=== PATIENT | female | born 1970 | race Caucasian/White ===

== ENCOUNTER 2020-08-04 16:52 | Emergency (ER) | payer BC ==
[~2020-08-04] VITALS: Ht 154 cm; Wt 97.5 kg
[2020-08-04] MEDS ORDERED: PRD20T PO (17:10)
--- NOTE | 2020-08-04 17:10 | ED Lower Extremity ---
General Chief Complaint: Lower Extremity Stated Complaint: R FOOT/HEEL PAIN Source: patient Exam Limitations: no limitations History of Present Illness Date Seen by Provider: Aug 04, 2020 Time Seen by Provider: 17:07 Initial Comments Right ankle pain x1 week. Saw Dr miriam Crews 1 week ago at onset of this and ankle was taped after a diagnosis of bone spur, but that made it worse. Was given nothing for pain. Onset: just prior to arrival Severity: moderate Pain/Injury Location: right ankle Method of Injury: unknown Allergies and Home Medications Allergies Coded Allergies: cefazolin (Verified Allergy, Mild, 08/04/20) tramadol (Verified Allergy, Unknown, 08/04/20) Home Medications Prednisone 20 Mg Tab, 40 MG PO DAILY Prescribed by: AMADOU CHOWDARY on 08/04/20 1710 Patient Home Medication List Home Medication List Reviewed: Yes Review of Systems Constitutional: see HPI; No chills, No fever EENTM: see HPI Respiratory: no symptoms reported Cardiovascular: no symptoms reported Genitourinary: no symptoms reported Musculoskeletal: see HPI Skin: no symptoms reported Psychiatric/Neurological: No Symptoms Reported Physical Exam Vital Signs Vital Signs - First Documented 08/04/20 17:00 Temp 36.5 Pulse 86 Resp 18 B/P (MAP) 121/79 (93) Pulse Ox 96 Capillary Refill : Height, Weight, BMI Height: '" Weight: lbs. oz. kg; BMI Method: General Appearance: WD/WN, no apparent distress HEENT: PERRL/EOMI, normal ENT inspection Neck: non-tender, full range of motion Respiratory: no respiratory distress, no accessory muscle use Hips: bilateral hip non-tender, bilateral hip normal inspection, bilateral hip normal range of motion Legs: bilateral leg non-tender, bilateral leg normal inspection, bilateral leg normal range of motion Knees: bilateral knee non-tender, bilateral knee normal inspection, bilateral knee normal range of motion Ankles: right ankle pain, right ankle soft tissue tenderness, right ankle other (Pain or swelling with normal skin color posterior to the lateral malleolus on the right. No erythema or ecchymosis.) Neurologic/Psychiatric: alert, normal mood/affect, oriented x 3 Skin: normal color, warm/dry Progress/Results/Core Measures Results/Orders My Orders Orders - AMADOU CHOWDARY APRN Foot, Right, 3 View (08/04/20 17:01) Ketorolac Injection (Toradol Injection) (08/04/20 17:15) Prednisone Tablet (Deltasone Tablet) (08/04/20 17:15) Medications Given in ED Current Medications Medications Dose Ordered Sig/Jaime Route Start Time Stop Time Status Last Admin Dose Admin Ketorolac Tromethamine 60 mg ONCE ONCE IM 08/04/20 17:15 08/04/20 17:16 DC 08/04/20 17:20 60 MG Prednisone 40 mg ONCE ONCE PO 08/04/20 17:15 08/04/20 17:16 DC 08/04/20 17:20 40 MG Vital Signs/I&O 08/04/20 17:00 Temp 36.5 Pulse 86 Resp 18 B/P (MAP) 121/79 (93) Pulse Ox 96 Departure Communication (Admissions) Enrique hayes reports a recent prescription for hydrocodone that she should not yet be out of---7 day rx for hydrocodone/apap 7.5/325 filled on 07/31 #25 tabs. Impression Primary Impression: Calcaneal bursitis, right Additional Impression: Calcaneal spur Disposition: HOME, SELF-CARE Condition: Stable Departure-Patient Inst. Decision time for Depature: 17:09 Referrals: ELZBIETA FINLEY DPM [facility] (PCP/Family) Primary Care Physician BOUBACAR CARROLL MD, CORIN Q DPM Patient Instructions: NO INSTRUCTIONS GIVEN Add. Discharge Instructions: 1. Steroids as directed. Crutches as needed. ice Pack to the area. return to ER for any worsening symptoms or other concerns. Follow-up with one of the orthopedist listed. All discharge instructions reviewed with patient and/or family. Voiced understanding. Scripts Prednisone (Prednisone) 20 Mg Tab 40 MG PO DAILY, #6 TAB Prov: AMADOU CHOWDARY APRN 08/04/20 AMADOU CHOWDARY PRODUCTION SUPPORT ANALYST Aug 04, 2020 17:10
[2020-08-04] MEDS ORDERED: KETOROLAC 60 MG/2 ML VIAL IM ONE (17:15)
[2020-08-04] MEDS ORDERED: predniSONE 20 MG TAB PO ONE (17:15)
[2020-08-04] MEDS ORDERED: BUDE10.2 (17:17)
[2020-08-04] MEDS ORDERED: HYDR-3817 (17:17)
[2020-08-04] MEDS ORDERED: ATEN50TA (17:17)
[2020-08-04] MEDS ORDERED: MELO15TA39 (17:17)
[2020-08-04] MEDS ORDERED: ZOLP10TA PO (17:18)
--- NOTE | 2020-08-04 17:41 | Diagnostic Imaging Report ---
INDICATION: Pain behind the lateral malleolus. TIME OF EXAM: 05:39 p.m. TECHNIQUE: Three views of the right foot were obtained. FINDINGS: Metatarsals appear intact. Phalanges are intact. Midfoot and hindfoot are unremarkable apart from a large plantar calcaneal spur. No fractures are seen. IMPRESSION: No acute bony abnormality is detected. Dictated by: Dictated on workstation # [id number]
[2020-08-04 17:52] VITALS: BP 110/86
== END 2020-08-04 17:52 | disposition home or self-care (01) ==
LOC: ER 16:56
DX: M77.51 Other enthesopathy of right foot and ankle (principal); M77.31 Calcaneal spur, right foot; Z88.5 Allergy status to narcotic agent; Z88.1 Allergy status to other antibiotic agents; Z79.52 Long term (current) use of systemic steroids
CPT/HCPCS: 73630

== ENCOUNTER 2022-09-05 11:35 | Emergency (ER) | payer MEDICAID ==
[~2022-09-05] VITALS: Ht 155 cm; Wt 102.2 kg
[~2022-09-05 11:35] MED LIST: ATEN50TA; BUDE10.2; HYDR-3817; MELO15TA39; PRD20T PO; ZOLP10TA PO
--- NOTE | 2022-09-05 13:30 | ED General ---
General Chief Complaint: General Problems/Pain Stated Complaint: LT ANKLE RETAINING FLUID | RT FINGERS NUMB Nursing Triage Note: PT STATES BILAT FOOT SWELLING, RIGHT INDEX AND MIDDLE FINGER NUMBNESS, AND LOWER BACK PAIN FROM WALKING FOR 1 HOUR IN THE RAIN. STATES SHE FELL 2 WEEKS AGO AND HAS A BROKEN LEFT FOOT THAT SHE REMOVED THE BOOT ON TO WALK INTO THE ED AND MULTIPLE BRUISES. Source of Information: Patient Exam Limitations: No Limitations History of Present Illness Date Seen by Provider: September 05, 2022 Time Seen by Provider: 13:27 Initial Comments Patient is a 51-year-old female presents ED with concern for bilateral foot swelling. Foot swelling over the past 2 days. She has Lasix 20 mg she takes for retained fluid which she has been taking with improvement of the swelling. She states she fractured her left lateral ankle 1 week ago currently wearing a boot. Denies of any leg pain, bruising or redness. She states she has urinated several times today. She denies feeling short of breath but does report a mild cough. 1 week ago she was walking in the rain in [place]. She is concerned she may have pneumonia. History of every day smoker. Denies history of COPD, CHF. She states she has stage II kidney disease. Denies diabetes. She denies any current chest pain, shortness of breath, abdominal pain vomiting, diarrhea, fever or chills. She is requesting a chest x-ray. She is refusing any lab work. She states she has a pain in her upper back after walking in the rain. Denies of any fall or trauma. Allergies and Home Medications Allergies Coded Allergies: cefazolin (Verified Allergy, Mild, 08/04/20) tramadol (Verified Allergy, Unknown, 08/04/20) Patient Home Medication List Home Medication List Reviewed: Yes Atenolol (Atenolol) 50 Mg Tablet, (Reported) Entered as Reported by: MANOLO PAGAN on 08/04/201716 Budesonide/Formoterol Fumarate (Symbicort 160-4.5 Mcg Inhaler) 10.2 Gm Hfa.aer.ad, (Reported) Entered as Reported by: MANOLO PAGAN on 08/04/201716 Hydrocodone/Acetaminophen (Hydrocodone-Acetamin 7.5-325) 1 Each Tablet, (Reported) Entered as Reported by: MANOLO PAGAN on 08/04/201716 Meloxicam (Meloxicam) 15 Mg Tablet, (Reported) Entered as Reported by: MANOLO PAGAN on 08/04/201716 Prednisone (Prednisone) 20 Mg Tab, 40 MG PO DAILY Prescribed by: AMADOU CHOWDARY on 08/04/201709 Zolpidem Tartrate (Ambien) 10 Mg Tablet, 10 MG PO, (Reported) Entered as Reported by: MANOLO PAGAN on 08/04/201717 Review of Systems Review of Systems Constitutional: No chills, No diaphoresis, No fever, No malaise EENTM: No blurred vision, No double vision Respiratory: cough; No dyspnea on exertion Cardiovascular: No chest pain Gastrointestinal: No abdominal pain, No diarrhea, No nausea, No vomiting Genitourinary: No decreased output, No discharge, No dysuria, No frequency Musculoskeletal: back pain, joint pain Skin: No change in color, No change in hair/nails Psychiatric/Neurological: Denies Anxiety, Denies Depressed All Other Systems Reviewed Negative Unless Noted: Yes Past Tgfrmlv-Asqnbp-Fdssaz Hx Patient Social History Tobacco Use?: Yes Tobacco type used: Cigarettes Smoking Status: Current Everyday Smoker Smokeless Tobacco Frequency: Current Everyday User Substance use?: No Alcohol Use?: No Seasonal Allergies Seasonal Allergies: No Past Medical History Surgery/Hospitalization HX: HTN, HIGH CHOLESTEROL, DEPRESSION, ANXIETY, INSOMNIA APPY, FOOT SURGERY 2001, C SECTION X2 Appendectomy, Section, Orthopedic Respiratory: No Cardiac: Yes High Cholesterol, Hypertension Neurological: No Genitourinary: No Gastrointestinal: No Musculoskeletal: No Endocrine: No HEENT: No Cancer: No Psychosocial: Yes Depression Integumentary: No Physical Exam Vital Signs Vital Signs - First Documented 09/05/22 11:46 Temp 37.0 Pulse 81 Resp 18 B/P (MAP) 114/67 (83) Pulse Ox 93 Capillary Refill : Less Than 3 Seconds Height, Weight, BMI Height: '" Weight: lbs. oz. kg; 42.00 BMI Method: General Appearance: No Apparent Distress, WD/WN Eyes: Bilateral Eye Normal Inspection, Bilateral Eye PERRL, Bilateral Eye Abnormal EOM HEENT: PERRL/EOMI, TMs Normal, Normal ENT Inspection, Pharynx Normal Neck: Full Range of Motion, Normal Inspection, Non Tender, Supple Respiratory: Chest Non Tender, Lungs Clear, Normal Breath Sounds, No Accessory Muscle Use, No Respiratory Distress Cardiovascular: Regular Rate, Rhythm, No Edema, No Gallop, No JVD, No Murmur Gastrointestinal: Normal Bowel Sounds, No Organomegaly, No Pulsatile Mass, Non Tender Back: Vertebral Tenderness (Thoracic paraspinal muscle tenderness. No lumbar thoracic midline tenderness) Extremity: Normal Capillary Refill, Normal Range of Motion, Other (Mild swelling bilateral dorsum foot, left lateral ankle. No tenderness to palpate. No swelling or bruising redness. Cap refill less than 2. Dorsalis pedis +2.) Neurologic/Psychiatric: Alert, Oriented x3, No Motor/Sensory Deficits, Normal Mood/Affect, bioengineer II-XII Norm as Tested Skin: Normal Color, Warm/Dry Progress/Results/Core Measures Suspected Sepsis SIRS Temperature: Pulse: 81 Respiratory Rate: 18 Blood Pressure 114 /67 Mean: 83 Results/Orders My Orders Orders - BREE CORMIER PA Chest 1 View, Ap/Pa Only (09/05/22 13:26) Vital Signs/I&O 09/05/22 09/05/22 11:46 13:57 Temp 37.0 Pulse 81 79 Resp 18 18 B/P (MAP) 114/67 (83) 125/65 Pulse Ox 93 93 Capillary Refill : Less Than 3 Seconds Blood Pressure Mean: 83 Departure Communication (PCP) Reviewed previous ER visits, H&P, lab testing. Differential diagnosis of lower leg edema, kidney disease, immobilization. patient recent fractured left ankle. Has been wearing a boot. She is concerned bilateral foot swelling. Does take Lasix periodically. She reports stage II kidney disease. Denies chest pain or shortness of breath. She states she developed a cough 1 week ago after walking in the rain. She has pain to her mid lateral back. Denies any fall or trauma. Chest x-ray was performed rule out pneumonia which was negative. She is not hypoxic, tachycardic or febrile. Bilateral feet with very minimal swelling. No redness, swelling or pain on palpation. Able to ambulate. Refused lab work check her kidney function. She states she had lab work drawn 6 weeks ago. Discussed potential change in lab work in 6 weeks. She does have Lasix that she takes intermittently for leg swelling. Denies history of CHF. Swelling may be secondary to her boot or immobilization. Patient states she is urinating. no evidence suggesting DVT without calf tenderness, calf redness or bruising. No evidence. She is not hypoxic or tachycardic. Patient vital signs stable. Patient does not appear toxic or septic. If worsening swelling to return back to ED. She states swelling is improved. Elevate feet. Orthopedic outpatient follow-up. Anti-inflammatories for back pain likely musculoskeletal Impression Primary Impression: Foot swelling Disposition: HOME, SELF-CARE Condition: Stable Departure-Patient Inst. Decision time for Depature: 13:51 Ref[place]: [facility] [place] Primary Care Physician Patient Instructions: Swelling Add. Discharge Instructions: Recommend following up with your primary care physician for further evaluation. Return back to ED if symptoms worsen. Elevate your feet at night. All discharge instructions reviewed with patient and/or family. Voiced understanding. BREE CORMIER September 05, 2022 13:30
--- NOTE | 2022-09-05 13:41 | Diagnostic Imaging Report ---
INDICATION: Cough and dyspnea. COMPARISON: None. DISCUSSION: Single portable upright view of the chest was obtained. Normal heart size. No consolidation, pleural fluid, or pneumothorax. No osseous abnormality. IMPRESSION: 1. Negative chest. Dictated by: Dictated on workstation # [id number]
[2022-09-05 13:57] VITALS: BP 125/65
== END 2022-09-05 13:57 | disposition home or self-care (01) ==
LOC: EDUNIT# 11:35 → ER 11:39
DX: M79.89 Other specified soft tissue disorders (principal); M54.6 Pain in thoracic spine; F17.210 Nicotine dependence, cigarettes, uncomplicated; Z98.890 Other specified postprocedural states
CPT/HCPCS: 71045

== ENCOUNTER 2022-09-13 18:07 | Emergency (ER) | payer MEDICAID ==
[~2022-09-13] VITALS: Ht 155 cm; Wt 102.0 kg
[~2022-09-13 18:07] MED LIST changes: -ATEN50TA; +ATEN50TA PO
[2022-09-13] MEDS ORDERED: KETOROLAC 30 MG/ML VIAL IVP STA (18:14)
[2022-09-13] MEDS ORDERED: RT-ALBUTEROL/IPRATROPIUM 3 ML (DUONEB) VIAL INH ONE (18:15)
--- NOTE | 2022-09-13 18:18 | ED Respiratory ---
General Chief Complaint: Respiratory Problems Stated Complaint: SOA Nursing Triage Note: PT AMB TO ED BY POV WITH C/O SOB X 2-3 WEEKS. PT REPORTS SHE FELL ON HER BACK 3 WEEKS AGO AND IS NOW HAVING PAIN WHEN SHE TAKES A DEEP BREATH. History of Present Illness Date Seen by Provider: Sep 13, 2022 Time Seen by Provider: 18:19 Initial Comments 51-year-old female presents with shortness of breath for 2 to 3 weeks. Patient reports that she has a feeling of having a hard time catching her breath. She reports that she has pain in her back when she takes a deep breath. She reports that she fell on her back 3 weeks ago and seems like that is when the pain started. She also reports she is got increased cough and some phlegm. She does have a history of smoking. No fevers chills nausea or vomiting Allergies and Home Medications Allergies Coded Allergies: cefazolin (Verified Allergy, Mild, 08/04/20) tramadol (Verified Allergy, Unknown, 08/04/20) Patient Home Medication List Home Medication List Reviewed: Yes Atenolol (Atenolol) 50 Mg Tablet, (Reported) Entered as Reported by: MANOLO PAGAN on 08/04/201716 Budesonide/Formoterol Fumarate (Symbicort 160-4.5 Mcg Inhaler) 10.2 Gm Hfa.aer.ad, (Reported) Entered as Reported by: MANOLO PAGAN on 08/04/201716 Hydrocodone/Acetaminophen (Hydrocodone-Acetamin 7.5-325) 1 Each Tablet, (Reported) Entered as Reported by: MANOLO PAGAN on 08/04/201716 Meloxicam (Meloxicam) 15 Mg Tablet, (Reported) Entered as Reported by: MANOLO PAGAN on 08/04/201716 Prednisone (Prednisone) 20 Mg Tab, 40 MG PO DAILY Prescribed by: AMADOU CHOWDARY on 08/04/201709 Zolpidem Tartrate (Ambien) 10 Mg Tablet, 10 MG PO, (Reported) Entered as Reported by: MANOLO PAGAN on 08/04/201717 Review of Systems Review of Systems Constitutional: No chills, No fever EENTM: no symptoms reported Respiratory: cough, phlegm, short of breath Cardiovascular: No chest pain Gastrointestinal: no symptoms reported Genitourinary: no symptoms reported Musculoskeletal: back pain Skin: no symptoms reported Psychiatric/Neurological: No Symptoms Reported Past Tmfrbmd-Epnumc-Kmugfv Hx Patient Social History Tobacco Use?: Yes Tobacco type used: Cigarettes Smoking Status: Current Everyday Smoker Use of E-Cig and/or Vaping dev: No Substance use?: No Alcohol Use?: No Pt feels they are or have been: No Immunizations Up To Date Influenza Vaccine Up-to-Date: No; Not Current First/Initial COVID19 Vaccinat: X2 Seasonal Allergies Seasonal Allergies: No Past Medical History Surgery/Hospitalization HX: HTN, HIGH CHOLESTEROL, DEPRESSION, ANXIETY, INSOMNIA APPY, FOOT SURGERY 2001, C SECTION X2 Appendectomy, Section, Orthopedic Respiratory: No Cardiac: Yes High Cholesterol, Hypertension Neurological: No Genitourinary: No Gastrointestinal: No Musculoskeletal: No Endocrine: No HEENT: No Cancer: No Psychosocial: Yes Depression Integumentary: No Physical Exam Vital Signs - First Documented 09/13/22 18:10 Temp 37.4 Pulse 92 Resp 16 B/P (MAP) 144/84 (104) Pulse Ox 97 O2 Delivery Room Air Capillary Refill : Less Than 3 Seconds Height: '" Weight: lbs. oz. kg; 42.00 BMI Method: General Appearance: WD/WN, no apparent distress, obese Respiratory: normal breath sounds, no respiratory distress, no accessory muscle use Cardiovascular: normal peripheral pulses, regular rate, rhythm Gastrointestinal: soft Neurologic/Psychiatric: alert, normal mood/affect, oriented x 3 Skin: normal color, warm/dry Progress/Results/Core Measures Suspected Sepsis SIRS Temperature: Pulse: 92 Respiratory Rate: 16 Laboratory Tests 09/13/22 18:16: White Blood Count 15.3H Blood Pressure 144 /84 Mean: 104 Laboratory Tests 09/13/22 18:16: Creatinine 1.82H, Platelet Count 322, Total Bilirubin 0.2 Results/Orders Lab Results Laboratory Tests Test 09/13/22 18:16 Range/Units White Blood Count 15.3 H 4.3-11.0 10^3/uL Red Blood Count 3.90 3.80-5.11 10^6/uL Hemoglobin 11.1 L 11.5-16.0 g/dL Hematocrit 34 L 35-52 % Mean Corpuscular Volume 88 80-99 fL Mean Corpuscular Hemoglobin 29 25-34 pg Mean Corpuscular Hemoglobin Concent 32 32-36 g/dL Red Cell Distribution Width 16.9 H 10.0-14.5 % Platelet Count 322 130-400 10^3/uL Mean Platelet Volume 9.4 9.0-12.2 fL Immature Granulocyte % (Auto) 0 % Neutrophils (%) (Auto) 79 H 42-75 % Lymphocytes (%) (Auto) 12 12-44 % Monocytes (%) (Auto) 8 0-12 % Eosinophils (%) (Auto) 1 0-10 % Basophils (%) (Auto) 1 0-10 % Neutrophils # (Auto) 12.0 H 1.8-7.8 10^3/uL Lymphocytes # (Auto) 1.8 1.0-4.0 10^3/uL Monocytes # (Auto) 1.2 H 0.0-1.0 10^3/uL Eosinophils # (Auto) 0.1 0.0-0.3 10^3/uL Basophils # (Auto) 0.1 0.0-0.1 10^3/uL Immature Granulocyte # (Auto) 0.1 0.0-0.1 10^3/uL Neutrophils % (Manual) 78 % Lymphocytes % (Manual) 16 % Monocytes % (Manual) 2 % Eosinophils % (Manual) 1 % Basophils % (Manual) 1 % Band Neutrophils 2 % Platelet Estimate NORMAL Polychromasia SLIGHT Hypochromasia SLIGHT Poikilocytosis SLIGHT Anisocytosis SLIGHT D-Dimer 0.52 H 0.00-0.49 UG/ML Sodium Level 144 135-145 MMOL/L Potassium Level 3.5 L 3.6-5.0 MMOL/L Chloride Level 111 H 98-107 MMOL/L Carbon Dioxide Level 18 L 21-32 MMOL/L Anion Gap 15 H 5-14 MMOL/L Blood Urea Nitrogen 19 H 7-18 MG/DL Creatinine 1.82 H 0.60-1.30 MG/DL Estimat Glomerular Filtration Rate 33 BUN/Creatinine Ratio 10 Glucose Level 111 H 70-105 MG/DL Calcium Level 9.7 8.5-10.1 MG/DL Corrected Calcium 9.7 8.5-10.1 MG/DL Magnesium Level 2.0 1.6-2.4 MG/DL Total Bilirubin 0.2 0.1-1.0 MG/DL Aspartate Amino Transf (AST/SGOT) 13 5-34 U/L Alanine Aminotransferase (ALT/SGPT) 14 0-55 U/L Alkaline Phosphatase 144 H 40-136 U/L Troponin I < 0.028 <0.028 NG/ML B-Type Natriuretic Peptide 106.2 H <100.0 PG/ML Total Protein 7.3 6.4-8.2 GM/DL Albumin 4.0 3.2-4.5 GM/DL My Orders Orders - SANTILLAN,ARLEEN L DO Chest Pa/Lat (2 View) (09/13/22 18:14) Albuterol/Ipra Inhalation Soln (Duoneb I (09/13/22 18:15) Svn Small Volume Nebulizer (09/13/22 18:14) Ed Iv/Invasive Line Start (09/13/22 18:14) Ekg Tracing (09/13/22 18:14) Monitor-Rhythm Ecg Trace Only (09/13/22 18:14) Bnp Tristin (09/13/22 18:14) Cbc With Automated Diff (09/13/22 18:14) Comprehensive Metabolic Panel (09/13/22 18:14) Magnesium (09/13/22 18:14) Troponin I [place] (09/13/22 18:14) Ketorolac Injection (Toradol Injection) (09/13/22 18:14) Fibrin Degradation Products (09/13/22 18:18) Manual Differential (09/13/22 18:16) Medications Given in ED Current Medications Medications Dose Ordered Sig/Jaime Route Start Time Stop Time Status Last Admin Dose Admin Albuterol/ Ipratropium 3 ml ONCE ONCE INH 09/13/22 18:15 09/13/22 18:20 DC 09/13/22 18:56 3 ML Vital Signs/I&O 09/13/22 09/13/22 18:10 18:54 Temp 37.4 Pulse 92 Resp 16 B/P (MAP) 144/84 (104) Pulse Ox 97 96 O2 Delivery Room Air Room Air Capillary Refill : Less Than 3 Seconds Blood Pressure Mean: 104 Progress Note : Progress Note Patient's diagnostic studies were ordered reviewed and interpreted by me. Patient's x-rays were ordered reviewed with initial interpretation of negative by me and found to rotation per radiology report. Patient's EKG showed normal sinus rhythm, ventricular rate 82, nonspecific T wave but no acute ST elevation changes. Patient does have an elevated white count I suspect she likely has bronchitis. She has slight elevation in her creatinine and some mild abnormalities but no concerning findings on her CT and PE. I will have her follow-up with her primary care provider to review these and ensure that they are improving. Patient to be started on azithromycin for bronchitis. She should follow-up within 1 week for recheck. Patient does have significant risk of increased morbidity and mortality based on her social determinants of health. ECG Initial ECG Impression Date: Sep 13, 2022 Initial ECG Impression Time: 18:36 Initial ECG Rate: 82 Initial ECG Rhythm: Normal Sinus Initial ECG Impression: Nonspecific Changes Comment nsr, hr 82, no acute st changes or elevation Departure Impression Primary Impression: Bronchitis Disposition: HOME, SELF-CARE Condition: Stable Departure-Patient Inst. Referrals: [facility] (PCP/Family) Primary Care Physician Patient Instructions: Acute bronchitis Add. Discharge Instructions: Please follow-up with your primary care provider in 1 week to recheck your labs and to ensure your symptoms are improving. Return to the ER with any concerns All discharge instructions reviewed with patient and/or family. Voiced understanding. Scripts Albuterol Sulfate (Ventolin Hfa) 90 Mcg Hfa.aer.ad 18 GM INH Q6H PRN for SHORTNESS OF BREATH, #1 EACH Prov: ARLEEN SANTILLAN DO 09/13/22 Azithromycin (Azithromycin) 250 Mg Tablet 250 MG PO UD, #6 TAB TAKE 2 TABLETS ON DAY ONE THEN TAKE 1 TABLET DAILY FOR FOUR MORE DAYS Prov: ARLEEN SANTILLAN DO 09/13/22 ARLEEN SANTILLAN DO Sep 13, 2022 18:18
[2022-09-13 18:24] LABS: BASOPHILS # (AUTO) 0.1 10^3/uL (0.0-0.1); BASOPHILS % (AUTO) 1 % (0-10); EOSINOPHILS # (AUTO) 0.1 10^3/uL (0.0-0.3); EOSINOPHILS % (AUTO) 1 % (0-10); HEMATOCRIT 34 % (35-52); HEMOGLOBIN 11.1 g/dL (11.5-16.0); LYMPHOCYTES # (AUTO) 1.8 10^3/uL (1.0-4.0); LYMPHOCYTES % (AUTO) 12 % (12-44); MEAN CORPUSCULAR HEMOGLOBIN 29 pg (25-34); MEAN CORPUSCULAR HGB CONC 32 g/dL (32-36); MEAN CORPUSCULAR VOLUME 88 fL (80-99); MEAN PLATELET VOLUME 9.4 fL (9.0-12.2); MONOCYTES # (AUTO) 1.2 10^3/uL (0.0-1.0); MONOCYTES % (AUTO) 8 % (0-12); NEUTROPHILS % (AUTO) 79 % (42-75); PLATELET COUNT 322 10^3/uL (130-400); WHITE BLOOD COUNT 15.3 10^3/uL (4.3-11.0)
[2022-09-13 18:49] LABS: ANISOCYTOSIS SLIGHT; BAND NEUTROPHILS 2 %; BASOPHILS % (MANUAL) 1 %; EOSINOPHILS % (MANUAL) 1 %; HYPOCHROMASIA SLIGHT; LYMPHOCYTES % (MANUAL) 16 %; MONOCYTES % (MANUAL) 2 %; NEUTROPHILS % (MANUAL) 78 %; PLATELET ESTIMATE NORMAL; POIKILOCYTOSIS SLIGHT; POLYCHROMASIA SLIGHT
[2022-09-13 18:50] LABS: ALANINE AMINOTRANSFERASE 14 U/L (0-55); ALKALINE PHOSPHATASE 144 U/L (40-136); BILIRUBIN,TOTAL 0.2 MG/DL (0.1-1.0); BUN/CREATININE RATIO 10; CALCIUM 9.7 MG/DL (8.5-10.1); CARBON DIOXIDE 18 MMOL/L (21-32); CHLORIDE 111 MMOL/L (98-107); CREATININE SERUM 1.82 MG/DL (0.60-1.30); GFR ESTIMATED 33; GLUCOSE 111 MG/DL (70-105); POTASSIUM 3.5 MMOL/L (3.6-5.0); SODIUM 144 MMOL/L (135-145); TOTAL PROTEIN 7.3 GM/DL (6.4-8.2)
--- NOTE | 2022-09-13 19:14 | Diagnostic Imaging Report ---
INDICATION: Shortness of breath. Time of Exam: 7:01 PM Comparison is made with prior chest from 09/05/2022. FINDINGS: The heart size is normal. The pulmonary vascularity is unremarkable. The lungs are clear. No infiltrate, effusion or pneumothorax is detected. IMPRESSION: No acute cardiopulmonary process is detected. Dictated by: Dictated on workstation # [id number]
[2022-09-13] MEDS ORDERED: ALBU18HF2 INH (19:27)
[2022-09-13] MEDS ORDERED: AZIT250T12 PO (19:27)
[2022-09-13 19:32] VITALS: BP 138/71
[2022-09-14] MEDS ORDERED: GABA800T10 PO (03:46)
[2022-09-14] MEDS ORDERED: LOSA50TA63 PO (16:01)
[2022-09-14] MEDS ORDERED: PRAV80TA2 PO (16:01)
[2022-09-14] MEDS ORDERED: PARO40TA3 PO (16:01)
[2022-09-14] MEDS ORDERED: ESZO3TAB39 PO (16:01)
[2022-09-14] MEDS ORDERED: PARO10TA3 PO (16:01)
[2022-09-14] MEDS ORDERED: BACL20TA PO (16:01)
== END 2022-09-13 19:32 | disposition home or self-care (01) ==
LOC: EDUNIT# 18:07 → ER 18:09
DX: J40 Bronchitis, not specified as acute or chronic (principal); F17.210 Nicotine dependence, cigarettes, uncomplicated; E66.9 Obesity, unspecified; Z68.41 Body mass index [BMI] 40.0-44.9, adult; Z88.1 Allergy status to other antibiotic agents
CPT/HCPCS: 36415; 71046; 80053; 83735; 83880; 84484; 85007; 85027; 85379; 93005; 93041; 94640

== ENCOUNTER 2022-09-14 03:42 | Observation (INO) | payer MEDICAID ==
[~2022-09-14] VITALS: Ht 155 cm; Wt 103.0 kg
[~2022-09-14 03:42] MED LIST changes: +ALBU18HF2 INH; +AZIT250T12 PO
[2022-09-14] MEDS ORDERED: GABA800T10 PO (03:46)
[2022-09-14 03:59] LABS: BASOPHILS # (AUTO) 0.1 10^3/uL (0.0-0.1); BASOPHILS % (AUTO) 0 % (0-10); EOSINOPHILS # (AUTO) 0.1 10^3/uL (0.0-0.3); EOSINOPHILS % (AUTO) 0 % (0-10); HEMATOCRIT 33 % (35-52); HEMOGLOBIN 10.6 g/dL (11.5-16.0); LYMPHOCYTES # (AUTO) 1.8 10^3/uL (1.0-4.0); LYMPHOCYTES % (AUTO) 9 % (12-44); MEAN CORPUSCULAR HEMOGLOBIN 28 pg (25-34); MEAN CORPUSCULAR HGB CONC 32 g/dL (32-36); MEAN CORPUSCULAR VOLUME 88 fL (80-99); MEAN PLATELET VOLUME 9.2 fL (9.0-12.2); MONOCYTES # (AUTO) 1.3 10^3/uL (0.0-1.0); MONOCYTES % (AUTO) 6 % (0-12); NEUTROPHILS # (AUTO) 17.6 10^3/uL (1.8-7.8); NEUTROPHILS % (AUTO) 84 % (42-75); PLATELET COUNT 302 10^3/uL (130-400)
[2022-09-14 04:00] LABS: ABG BASE EXCESS -5.5 MMOL/L (-2.5-2.5); ABG OXYGEN SATURATION 95 % (94-100); ABG PCO2 37 MMHG (35-45); ABG PO2 70 MMHG (79-93); ABG TCO2 20.5 MMOL/L (21.0-31.0); ALLENS TEST YES-POS; INSPIRED O2 ROOM AIR; PATIENT TEMP 36.4; VENTILATOR NO
[2022-09-14] MEDS ORDERED: RT-ALBUTEROL/IPRATROPIUM 3 ML (DUONEB) VIAL INH ONE (04:00)
[2022-09-14 04:01] LABS: ABG PH 7.34 (7.37-7.43)
--- NOTE | 2022-09-14 04:04 | ED General ---
General Chief Complaint: Altered Mental Status Stated Complaint: AMS Nursing Triage Note: brought in by [facility] for altered mental status. ems reports pt's daughter called ems for pt not acting right. pt reports taking 800mg gabapentin, c/o right rib pain after fall tonight. (ARLEEN SANTILLAN DO) History of Present Illness Date Seen by Provider: Sep 14, 2022 Time Seen by Provider: 03:58 Initial Comments 51-year-old female brought in by EMS. EMS was called because the patient's daughter called and reported that she is just not acting right. There is reports that patient fell earlier this evening and is complaining of right rib pain and "hit her face" she also reports that she took 800 mg of gabapentin and that she acts like this after her gabapentin. Patient was seen by me earlier tonight for a fall 3 weeks ago and treated for bronchitis following evaluation due to having a cough for 3 weeks. Patient reports that after she went home she was mopping when she slipped and fell. She denies any other drugs or psychoactive substances that she took. (ARLEEN SANTILLAN DO) Allergies and Home Medications Allergies Coded Allergies: cefazolin (Verified Allergy, Mild, 08/04/20) tramadol (Verified Allergy, Unknown, 08/04/20) Patient Home Medication List Home Medication List Reviewed: Yes (ARLEEN SANTILLAN DO) Home Medication List Reviewed: Yes (LEORA MARTIN MD) Atenolol (Atenolol) 50 Mg Tablet, 50 MG PO BID, (Reported) Entered as Reported by: MANOLO PAGAN on 08/04/20 1717 Last Action: Converted Baclofen (Baclofen) 20 Mg Tablet, 20 MG PO HS, (Reported) Entered as Reported by: SHERLY HARRIS on 09/14/22 160 Last Action: Converted Eszopiclone (Eszopiclone) 3 Mg Tablet, 3 MG PO HS, (Reported) Entered as Reported by: SHERLY HARRIS on 09/14/22 160 Last Action: Converted Gabapentin (Gabapentin) 800 Mg Tablet, 800 MG PO BID, (Reported) Entered as Reported by: RG GARCIA on 09/14/22 0346 Last Action: Converted Losartan Potassium (Losartan Potassium) 50 Mg Tablet, 50 MG PO DAILY, (Reported) Entered as Reported by: SHERLY HARRIS on 09/14/221600 Last Action: Continued Paroxetine HCl (Paroxetine HCl) 10 Mg Tablet, 10 MG PO DAILY, (Reported) Entered as Reported by: SHERLY HARRIS on 09/14/221600 Last Action: Continued Paroxetine HCl (Paroxetine HCl) 40 Mg Tablet, 40 MG PO DAILY, (Reported) Entered as Reported by: SHERLY HARRIS on 09/14/221600 Last Action: Converted Pravastatin Sodium (Pravastatin Sodium) 80 Mg Tablet, 80 MG PO HS, (Reported) Entered as Reported by: SHERLY HARRIS on 09/14/221600 Last Action: Converted Discontinued Medications Albuterol Sulfate (Ventolin Hfa) 90 Mcg Hfa.aer.ad, 18 GM INH Q6H PRN for SHORTNESS OF BREATH Discontinued Reason: No Longer Taking Prescribed by: ARLEEN SANTILLAN on 09/13/221926 Last Action: Discontinued Azithromycin (Azithromycin) 250 Mg Tablet, 250 MG PO UD Discontinued Reason: No Longer Taking Prescribed by: ARLEEN SANTILLAN on 09/13/221926 Last Action: Discontinued Budesonide/Formoterol Fumarate (Symbicort 160-4.5 Mcg Inhaler) 10.2 Gm Hfa.aer.ad, (Reported) Discontinued Reason: No Longer Taking Entered as Reported by: MANOLO PAGAN on 08/04/201716 Last Action: Discontinued Hydrocodone/Acetaminophen (Hydrocodone-Acetamin 7.5-325) 1 Each Tablet, (Reported) Discontinued Reason: No Longer Taking Entered as Reported by: MANOLO PAGAN on 08/04/201716 Last Action: Discontinued Meloxicam (Meloxicam) 15 Mg Tablet, (Reported) Discontinued Reason: No Longer Taking Entered as Reported by: MANOLO PAGAN on 08/04/201716 Last Action: Discontinued Prednisone (Prednisone) 20 Mg Tab, 40 MG PO DAILY Discontinued Reason: No Longer Taking Prescribed by: AMADOU CHOWDARY on 08/04/201709 Last Action: Discontinued Zolpidem Tartrate (Ambien) 10 Mg Tablet, 10 MG PO, (Reported) Discontinued Reason: No Longer Taking Entered as Reported by: MANOLO PAGAN on 08/04/201717 Last Action: Discontinued Review of Systems Review of Systems Constitutional: No chills, No fever Respiratory: see HPI, cough Cardiovascular: see HPI Gastrointestinal: no symptoms reported Skin: no symptoms reported Psychiatric/Neurological: See HPI (ARLEEN SANTILLAN DO) Past Ygtgheg-Npmgfl-Eqakxx Hx Patient Social History Tobacco Use?: Yes Substance use?: No Alcohol Use?: No Pt feels they are or have been: No (ARLEEN SANTILLAN DO) Immunizations Up To Date First/Initial COVID19 Vaccinat: X2 Second COVID19 Vaccination Chi: X2 Third COVID19 Vaccination Date: X2 (ARLEEN SANTILLAN DO) Seasonal Allergies Seasonal Allergies: No (ARLEEN SANTILLAN DO) Past Medical History Surgery/Hospitalization HX: HTN, HIGH CHOLESTEROL, DEPRESSION, ANXIETY, INSOMNIA APPY, FOOT SURGERY 2001, C SECTION X2 Appendectomy, Section, Orthopedic Respiratory: No Cardiac: Yes High Cholesterol, Hypertension Neurological: No Genitourinary: No Gastrointestinal: No Musculoskeletal: No Endocrine: No HEENT: No Cancer: No Psychosocial: Yes Depression Integumentary: No (ARLEEN SANTILLAN DO) Physical Exam Vital Signs Vital Signs - First Documented 09/14/22 09/14/22 03:43 04:24 Temp 36.4 Pulse 84 Resp 22 B/P (MAP) 121/91 (101) Pulse Ox 93 O2 Delivery Room Air O2 Flow Rate 0 FiO2 21 (LEORA MARTIN MD) Vital Signs Capillary Refill : Less Than 3 Seconds (ARLEEN SANTILLAN DO) Height, Weight, BMI Height: '" Weight: lbs. oz. kg; 42.00 BMI Method: General Appearance: Other (No acute distress, symptoms consistent with possible drug reaction or intoxication) Eyes: Bilateral Eye Other (Mild dilation bilateral) HEENT: Moist Mucous Membranes, Other Respiratory: Chest Non Tender, Lungs Clear, Normal Breath Sounds Cardiovascular: Regular Rate, Rhythm, No Edema Extremity: Normal Capillary Refill Neurologic/Psychiatric: Other (Mild abnormal movements but they are controlled and can be stopped by patient. Patient can answer questions appropriately) (ARLEEN SANTILLAN DO) Focused Exam Lactate Level 09/14/22 10:14: Lactic Acid Level 0.96 (LEORA MARTIN MD) Lactic Acid Level Laboratory Tests Test 09/14/22 10:14 Lactic Acid Level 0.96 MMOL/L (0.50-2.00) (LEORA MARTIN MD) Progress/Results/Core Measures Suspected Sepsis SIRS Temperature: Pulse: 84 Respiratory Rate: 22 Laboratory Tests 09/14/22 03:50: White Blood Count 21.0H Blood Pressure 121 /91 Mean: 101 09/14/22 10:14: Lactic Acid Level 0.96 Laboratory Tests 09/14/22 03:50: Creatinine 1.46H, Platelet Count 302, Total Bilirubin 0.3 (SANTILLAN,ARLEEN L DO) Results/Orders Lab Results Laboratory Tests Test 09/14/22 03:50 09/14/22 03:55 09/14/22 07:45 09/14/22 08:12 Range/Units White Blood Count 21.0 H 4.3-11.0 10^3/uL Red Blood Count 3.77 L 3.80-5.11 10^6/uL Hemoglobin 10.6 L 11.5-16.0 g/dL Hematocrit 33 L 35-52 % Mean Corpuscular Volume 88 80-99 fL Mean Corpuscular Hemoglobin 28 25-34 pg Mean Corpuscular Hemoglobin Concent 32 32-36 g/dL Red Cell Distribution Width 16.8 H 10.0-14.5 % Platelet Count 302 130-400 10^3/uL Mean Platelet Volume 9.2 9.0-12.2 fL Immature Granulocyte % (Auto) 1 % Neutrophils (%) (Auto) 84 H 42-75 % Lymphocytes (%) (Auto) 9 L 12-44 % Monocytes (%) (Auto) 6 0-12 % Eosinophils (%) (Auto) 0 0-10 % Basophils (%) (Auto) 0 0-10 % Neutrophils # (Auto) 17.6 H 1.8-7.8 10^3/uL Lymphocytes # (Auto) 1.8 1.0-4.0 10^3/uL Monocytes # (Auto) 1.3 H 0.0-1.0 10^3/uL Eosinophils # (Auto) 0.1 0.0-0.3 10^3/uL Basophils # (Auto) 0.1 0.0-0.1 10^3/uL Immature Granulocyte # (Auto) 0.2 H 0.0-0.1 10^3/uL Neutrophils % (Manual) 90 % Lymphocytes % (Manual) 8 % Monocytes % (Manual) 2 % Anisocytosis SLIGHT Elliptocytes SLIGHT Sodium Level 144 135-145 MMOL/L Potassium Level 3.5 L 3.6-5.0 MMOL/L Chloride Level 113 H 98-107 MMOL/L Carbon Dioxide Level 20 L 21-32 MMOL/L Anion Gap 11 5-14 MMOL/L Blood Urea Nitrogen 22 H 7-18 MG/DL Creatinine 1.46 H 0.60-1.30 MG/DL Estimat Glomerular Filtration Rate 43 BUN/Creatinine Ratio 15 Glucose Level 109 H 70-105 MG/DL Calcium Level 9.7 8.5-10.1 MG/DL Corrected Calcium 9.8 8.5-10.1 MG/DL Total Bilirubin 0.3 0.1-1.0 MG/DL Aspartate Amino Transf (AST/SGOT) 16 5-34 U/L Alanine Aminotransferase (ALT/SGPT) 18 0-55 U/L Alkaline Phosphatase 126 40-136 U/L Total Protein 6.9 6.4-8.2 GM/DL Albumin 3.9 3.2-4.5 GM/DL Blood Gas Puncture Site RR Blood Gas Patient Temperature 36.4 Arterial Blood pH 7.34 *L 7.37-7.43 Arterial Blood Partial Pressure CO2 37 35-45 MMHG Arterial Blood Partial Pressure O2 70 L 79-93 MMHG Arterial Blood HCO3 19 L 23-27 MMOL/L Arterial Blood Total CO2 20.5 L 21.0-31.0 MMOL/L Arterial Blood Oxygen Saturation 95 94-100 % Arterial Blood Base Excess -5.5 L -2.5-2.5 MMOL/L John Test YES-POS Blood Gas Ventilator Setting NO Blood Gas Inspired Oxygen ROOM AIR Urine Color YELLOW Urine Clarity CLEAR Urine pH 6.0 5-9 Urine Specific [place] >=1.030 1.016-1.022 Urine Protein 1+ H NEGATIVE Urine Glucose (UA) NEGATIVE NEGATIVE Urine Ketones NEGATIVE NEGATIVE Urine Nitrite NEGATIVE NEGATIVE Urine Bilirubin NEGATIVE NEGATIVE Urine Urobilinogen 0.2 < = 1.0 MG/DL Urine Leukocyte Esterase NEGATIVE NEGATIVE Urine RBC (Auto) NEGATIVE NEGATIVE Urine RBC NONE /HPF Urine WBC NONE /HPF Urine Squamous Epithelial Cells RARE /HPF Urine Crystals PRESENT H /LPF Urine Calcium Oxalate Crystals LARGE H /LPF Urine Bacteria TRACE /HPF Urine Casts PRESENT /LPF Urine Hyaline Casts RARE /LPF Urine Mucus SMALL H /LPF Urine Culture Indicated NO Urine Opiates Screen NEGATIVE NEGATIVE Urine Oxycodone Screen NEGATIVE NEGATIVE Urine Methadone Screen NEGATIVE NEGATIVE Urine Propoxyphene Screen NEGATIVE NEGATIVE Urine Barbiturates Screen NEGATIVE NEGATIVE Ur Tricyclic Antidepressants Screen NEGATIVE NEGATIVE Urine Phencyclidine Screen NEGATIVE NEGATIVE Urine Amphetamines Screen NEGATIVE NEGATIVE Urine Methamphetamines Screen NEGATIVE NEGATIVE Urine Benzodiazepines Screen NEGATIVE NEGATIVE Urine Cocaine Screen NEGATIVE NEGATIVE Urine Cannabinoids Screen NEGATIVE NEGATIVE Influenza Type A (RT-PCR) Not Detected Not Detecte Influenza Type B (RT-PCR) Not Detected Not Detecte SARS-CoV-2 RNA (RT-PCR) Not Detected Not Detecte Test 09/14/22 10:14 Range/Units Lactic Acid Level 0.96 0.50-2.00 MMOL/L (LEORA MARTIN MD) Micro Results Microbiology 09/14/22 Blood Culture - Preliminary, Resulted No growth 09/14/22 Blood Culture - Preliminary, Resulted No growth (LEORA MARTIN MD) My Orders Orders - LEORA MARTIN MD Covid 19 Inhouse Test (09/14/22 08:10) Influenza A And B By Pcr (09/14/22 08:10) Piperacillin Sodium/Tazobactam (Zosyn Vi (09/14/22 09:30) Blood Culture (09/14/22 09:28) Lactic Acid Analyzer (09/14/22 09:28) Blood Culture (09/14/22 10:29) (LEORA MARTIN MD) Medications Given in ED (LEORA MARTIN MD) Vital Signs/I&O 09/14/22 09/14/22 09/14/22 09/14/22 03:43 04:24 10:37 11:20 Temp 36.4 36.6 Pulse 84 69 Resp 22 20 B/P (MAP) 121/91 (101) 157/86 Pulse Ox 93 95 96 O2 Delivery Room Air Room Air Nasal Cannula Nasal Cannula O2 Flow Rate 0 2.00 2.00 FiO2 21 88 (LEORA MARTIN MD) Vital Signs/I&O Capillary Refill : Less Than 3 Seconds (ARLEEN SANTILLAN DO) Blood Pressure Mean: 101 Progress Note : Progress Note Patient diagnostic studies were ordered reviewed and interpreted by me. She does have an increase in her white count from 15-21. It is mild decrease in her hemoglobin from 11.1-10.6 since her visit earlier in the evening. Patient initial arrival to the ER acted very much like she had ingested an unknown subst ance although denying it. While in the ER she quit had a jerking around and moving and became just fatigued and slept. The rest of her labs are similar to her prior labs. Her oxygen remained appropriate throughout the stay on room air. Patient's CT head was ordered reviewed by me with found to rotation per radiology report of negative. Patient chest x-ray was ordered reviewed by me with an atypical infection. Patient does not appear to be cephalopathic but more of an intoxication as for reactions are able to be manipulated. There may be an underlying psychiatric issue. Patient's care was turned over to Dr. Martin for further evaluation and recommendations. She was stable upon transfer of care at shift change (ARLEEN SANTILLAN DO) Progress Note : Time: 10:11 Progress Note Patient care was assumed from Dr. Santillan at shift change, 6:15 AM. I added to the patient's work-up, blood cultures, lactic acid, COVID test. Patient continued to sleep, rest comfortably. It was noted by her nurse Jessi that the patient continued to be agitated when aroused. She was also noted when sleeping to drop her oxygen saturations into the mid low 80s. She was placed on nasal cannula oxygen at 2 to 3 L. On my evaluation she will answer questions. She denies pain. She states she knows she is in the hospital. She does demonstrate coarse wet cough. Oxygen saturations 94 to 95% on the 2 L. No increased work of breathing or respiratory distress is noted. Diffuse crackles throughout. No wheezes. Abdomen exam is soft. No lower extremity swelling or calf tenderness. Heart is regular, not tachycardic. Afebrile. Labs reviewed by me. Patient had a significant change in her leukocytosis from 15,000 around 6:30 PM last evening to almost 22,000 today. Lactic acid is pending at this time. She appears to have chronic kidney disease. Her CT chest shows multifocal bilateral patchy infiltrates. COVID is negative. Due to her long smoking history we will start the patient on Zosyn. She is cefazolin allergic therefore Rocephin not pursued. Case was discussed with Dr. Gastelum on for [facility] hospitalist. We will admit the patient to the medical floor. IV fluids. Monitoring mental state. (LEORA MARTIN MD) Diagnostic Imaging Diagonstic Imaging: CT Plain Films/CT/US/NM/MRI: head Comments No acute intracranial findings [facility]ed: [facility] Diagonstic Imaging: CT Plain Films/CT/US/NM/MRI: chest Comments Atypical infection, chronic right rib fractures no acute fracture noted Reviewed: [facility], [facility] (ARLEEN SANTILLAN DO) Departure Communication (Admissions) Time/Spoke to Admitting Phy: 09:[address] Gastelum ([facility] hospitalist) (LEORA MARTIN MD) Impression Primary Impression: Pneumonia Qualified Codes: J18.9 - Pneumonia, unspecified organism Additional Impression: Altered mental status Qualified Codes: R41.82 - Altered mental status, unspecified Disposition: ADMITTED INPATIENT Condition: Stable Admissions Decision to Admit Reason: Admit from ER (General) Decision to Admit/Date: Sep 14, 2022 Time/Decision to Admit Time: 10:15 (LEORA MARTIN MD) Departure-Patient Inst. Referrals: [facility] (PCP/Family) Primary Care Physician ARLEEN SANTILLAN DO Sep 14, 2022 04:04 LEORA MARTIN MD Sep 14, 2022 10:15
[2022-09-14 04:08] LABS: ALBUMIN 3.9 GM/DL (3.2-4.5); POTASSIUM 3.5 MMOL/L (3.6-5.0)
[2022-09-14 04:09] LABS: CALCIUM 9.7 MG/DL (8.5-10.1)
[2022-09-14 04:11] LABS: TOTAL PROTEIN 6.9 GM/DL (6.4-8.2)
[2022-09-14 04:13] LABS: BILIRUBIN,TOTAL 0.3 MG/DL (0.1-1.0)
[2022-09-14 04:14] LABS: CREATININE SERUM 1.46 MG/DL (0.60-1.30)
[2022-09-14 04:30] LABS: ANISOCYTOSIS SLIGHT; ELLIPT/OVALOCYTES SLIGHT; LYMPHOCYTES % (MANUAL) 8 %; MONOCYTES % (MANUAL) 2 %; NEUTROPHILS % (MANUAL) 90 %
--- NOTE | 2022-09-14 06:26 | Diagnostic Imaging Report ---
PROCEDURE: CT head without contrast. TECHNIQUE: Multiple contiguous axial images were obtained through the brain without the use of intravenous contrast. Auto Exposure Controls were utilized during the CT exam to meet ALARA standards for radiation dose reduction. INDICATION: Fall yesterday, pain. EXAMINATION: CT brain without contrast 09/14/2022. FINDINGS: No hemorrhage or infarct is seen with no mass, mass effect or midline shift. There is no hydrocephalus. The calvarium intact with paranasal sinuses and mastoid air cells unremarkable. IMPRESSION: No acute intracranial process. Findings agree with the preliminary report. Dictated by: Dictated on workstation # [id number]
--- NOTE | 2022-09-14 07:14 | Diagnostic Imaging Report ---
PROCEDURE: CT chest without contrast. TECHNIQUE: Multiple contiguous axial images were obtained through the chest without the use of intravenous contrast. Auto Exposure Controls were utilized during the CT exam to meet ALARA standards for radiation dose reduction. INDICATION: Fell yesterday right rib pain. EXAMINATION: CT chest without contrast 09/14/2022 FINDINGS: There is a respiratory motion due to patient's inability to breath-hold. This limits evaluation of the lungs. Diffuse patchy airspace opacities noted throughout both lungs is predominantly towards the periphery of the lungs. This may be represent an atypical pneumonia with COVID included in the differential. No pneumothorax. No significant pericardial or pleural effusions. No gross adenopathy appreciated. Visualized upper abdominal structures demonstrate no acute abnormalities. Due to motion artifact the osseous structures somewhat limited. No definite acute displaced fractures appreciated. There are however multiple chronic appearing fractures along the left posterior lateral ribs. IMPRESSION: 1. No acute fractures identified in the setting of motion artifact. Old rib fractures seen on the left. 2. Diffuse scattered patchy airspace opacities throughout both lungs nonspecific but likely due to diffuse bilateral infiltrates see above discussion. Contusion also in the differential. Pertinent findings agree with the preliminary report. Dictated by: Dictated on workstation # [id number]
[2022-09-14 07:51] LABS: BILIRUBIN,URINE NEGATIVE (NEGATIVE); CLARITY,URINE CLEAR; COLOR,URINE YELLOW; GLUCOSE, URINE (UA) NEGATIVE (NEGATIVE); KETONES,URINE NEGATIVE (NEGATIVE); LEUKOCYTE ESTERASE ,URINE NEGATIVE (NEGATIVE); NITRITE,URINE NEGATIVE (NEGATIVE); PROTEIN,URINE 1+ (NEGATIVE)
[2022-09-14 08:04] LABS: AMPHETAMINE SCREEN, URINE NEGATIVE (NEGATIVE); BARBITURATE SCREEN URINE NEGATIVE (NEGATIVE); BENZODIAZEPINES SCREEN URINE NEGATIVE (NEGATIVE); CANNABINOID SCREEN, URINE NEGATIVE (NEGATIVE); COCAINE SCREEN URINE NEGATIVE (NEGATIVE); METHADONE STAT NEGATIVE (NEGATIVE); OPIATE SCREEN URINE NEGATIVE (NEGATIVE); OXYCODONE STAT NEGATIVE (NEGATIVE); PROPOXYPHENE STAT NEGATIVE (NEGATIVE); TRICYCLIC ANTIDEPRESSANTS SCRE NEGATIVE (NEGATIVE)
[2022-09-14 08:05] LABS: BACTERIA,URINE TRACE /HPF; CALCIUM OXALATE CRYSTALS,UR LARGE /LPF; SQUAMOUS EPITHELIAL CELL,UR RARE /HPF
[2022-09-14 08:06] LABS: HYALINE CASTS, URINE RARE /LPF
[2022-09-14] MEDS ORDERED: PIPERACILLIN SODIUM/TAZOBACTAM 4.5 GM in NS (IVPB) 100 ML IV ONE (09:30)
[2022-09-14] MEDS ORDERED: CATHETER FLUSH 10 ML SYR IVP PRN (12:00)
[2022-09-14] MEDS: NS IV 1000 ML 1,000 ML IV SCH (12:28)
[2022-09-14 14:47] VITALS: BP 157/86
[2022-09-14] MEDS ORDERED: RT-ALBUTEROL/IPRATROPIUM 3 ML (DUONEB) VIAL INH PRN (15:00)
[2022-09-14] MEDS: RT-ALBUTEROL/IPRATROPIUM 3 ML (DUONEB) VIAL INH SCH ×2 (15:09→21:38)
[2022-09-14 15:43] VITALS: BP_SYST 148; BP_SYST 189; BP_DIAS 107; BP_DIAS 98
[2022-09-14] MEDS ORDERED: PARO10TA3 PO (16:01)
[2022-09-14] MEDS ORDERED: LOSA50TA63 PO (16:01)
[2022-09-14] MEDS ORDERED: PARO40TA3 PO (16:01)
[2022-09-14] MEDS ORDERED: BACL20TA PO (16:01)
[2022-09-14] MEDS ORDERED: PRAV80TA2 PO (16:01)
[2022-09-14] MEDS ORDERED: ESZO3TAB39 PO (16:01)
[2022-09-14] MEDS: PIPERACILLIN SODIUM/TAZOBACTAM 4.5 GM in NS (IVPB) 100 ML IV SCH (17:41)
[2022-09-14 19:20] VITALS: BP 141/72
[2022-09-14] MEDS: oxyCODONE/APAP 5/325MG (PERCOCET 5) TABLET PO PRN (19:33)
[2022-09-14 23:04] VITALS: BP 141/70
[2022-09-15] MEDS: PIPERACILLIN SODIUM/TAZOBACTAM 4.5 GM in NS (IVPB) 100 ML IV SCH ×3 (01:19→16:50)
[2022-09-15] MEDS: NS IV 1000 ML 1,000 ML IV SCH ×3 (01:19→11:37)
[2022-09-15] MEDS: RT-ALBUTEROL/IPRATROPIUM 3 ML (DUONEB) VIAL INH SCH ×4 (02:41→23:10)
[2022-09-15] MEDS: oxyCODONE/APAP 5/325MG (PERCOCET 5) TABLET PO PRN ×3 (02:59→15:38)
[2022-09-15 03:13] VITALS: BP 162/79
[2022-09-15 05:25] LABS: BASOPHILS # (AUTO) 0.1 10^3/uL (0.0-0.1); BASOPHILS % (AUTO) 1 % (0-10); EOSINOPHILS # (AUTO) 0.2 10^3/uL (0.0-0.3); EOSINOPHILS % (AUTO) 2 % (0-10); HEMATOCRIT 31 % (35-52); HEMOGLOBIN 9.7 g/dL (11.5-16.0); LYMPHOCYTES # (AUTO) 1.8 10^3/uL (1.0-4.0); LYMPHOCYTES % (AUTO) 16 % (12-44); MEAN CORPUSCULAR HEMOGLOBIN 28 pg (25-34); MEAN CORPUSCULAR HGB CONC 31 g/dL (32-36); MEAN CORPUSCULAR VOLUME 88 fL (80-99); MONOCYTES # (AUTO) 0.9 10^3/uL (0.0-1.0); MONOCYTES % (AUTO) 9 % (0-12); NEUTROPHILS # (AUTO) 7.9 10^3/uL (1.8-7.8); NEUTROPHILS % (AUTO) 73 % (42-75); PLATELET COUNT 303 10^3/uL (130-400); WHITE BLOOD COUNT 10.9 10^3/uL (4.3-11.0)
[2022-09-15 05:41] LABS: POTASSIUM 3.2 MMOL/L (3.6-5.0)
[2022-09-15 05:47] LABS: CREATININE SERUM 0.96 MG/DL (0.60-1.30)
[2022-09-15 07:18] VITALS: BP 159/74
[2022-09-15] MEDS ORDERED: LACTULOSE SYRUP 10GM/15ML (ENULOSE) 30ML UDC PO PRN (10:15)
[2022-09-15] MEDS ORDERED: LACTULOSE SYRUP 10GM/15ML (ENULOSE) 30ML UDC PO ONE (10:15)
--- NOTE | 2022-09-15 11:14 | History & Physical ---
HPI History of Present Illness: 51 yo F that presented to ER after a fall and found to require oxygen was having right rib pain and cough. Daughter stated that she brought her mom because she was not acting right. Patient states that she started having shortness of breath and cough on monday. Denies any sick contacts. She does smoke daily and decl loyda patch at this time. States that she has been taking her inhaler as prescribed. Denies any chest pain. Source: patient, family Exam Limitations: no limitations Date seen by provider: Sep 15, 2022 Time Seen by Provider: 10:05 Attending Physician [facility] PCP Admitting Physician: Andria Gastelum MD Attending Physician: Andria Gastelum MD Consult Date of Admission Sep 14, 2022 at 11:22 Home Medications Home Medications Reviewed patient Home Medication Reconciliation performed by pharmacy medication reconciliations data communications technician and/or nursing. Patients Allergies have been reviewed. Allergies Coded Allergies: cefazolin (Verified Allergy, Mild, 08/04/20) tramadol (Verified Allergy, Unknown, 08/04/20) IAB-Qtvyus-Avjeyi Hx Patient Social History Smoking Status: Current Everyday Smoker Recent Hopitalizations: No Alcohol Use?: No Tobacco type used: Cigarettes Immunizations Up To Date Influenza Vaccine Up-to-Date: No; Not Current First/Initial COVID19 Vaccinat: X2 Second COVID19 Vaccination Chi: X2 Third COVID19 Vaccination Date: X2 Past Medical History COPD HTN HLD Depression Family Medical History Significant Family History: No Pertinent Family Hx Review of Systems ([facility]) Constitutional: No chills, No fever; malaise, weakness EENTM: nose congestion, throat pain; No mouth pain, No nose pain Respiratory: cough, dyspnea on exertion Cardiovascular: no symptoms reported; No chest pain, No edema, No palpitations Gastrointestinal: no symptoms reported; No abdominal pain, No constipation, No diarrhea, No nausea, No vomiting Genitourinary: no symptoms reported; No dysuria, No frequency, No hematuria Musculoskeletal: joint pain, muscle pain Skin: no symptoms reported Psychiatric/Neurological: No Symptoms Reported Reviewed Test Results Reviewed Test Results Lab Laboratory Tests Test 09/15/22 04:55 Range/Units White Blood Count 10.9 4.3-11.0 10^3/uL Red Blood Count 3.51 L 3.80-5.11 10^6/uL Hemoglobin 9.7 L 11.5-16.0 g/dL Hematocrit 31 L 35-52 % Mean Corpuscular Volume 88 80-99 fL Mean Corpuscular Hemoglobin 28 25-34 pg Mean Corpuscular Hemoglobin Concent 31 L 32-36 g/dL Red Cell Distribution Width 17.1 H 10.0-14.5 % Platelet Count 303 130-400 10^3/uL Mean Platelet Volume 10.0 9.0-12.2 fL Immature Granulocyte % (Auto) 1 % Neutrophils (%) (Auto) 73 42-75 % Lymphocytes (%) (Auto) 16 12-44 % Monocytes (%) (Auto) 9 0-12 % Eosinophils (%) (Auto) 2 0-10 % Basophils (%) (Auto) 1 0-10 % Neutrophils # (Auto) 7.9 H 1.8-7.8 10^3/uL Lymphocytes # (Auto) 1.8 1.0-4.0 10^3/uL Monocytes # (Auto) 0.9 0.0-1.0 10^3/uL Eosinophils # (Auto) 0.2 0.0-0.3 10^3/uL Basophils # (Auto) 0.1 0.0-0.1 10^3/uL Immature Granulocyte # (Auto) 0.1 0.0-0.1 10^3/uL Sodium Level 143 135-145 MMOL/L Potassium Level 3.2 L 3.6-5.0 MMOL/L Chloride Level 114 H 98-107 MMOL/L Carbon Dioxide Level 21 21-32 MMOL/L Anion Gap 8 5-14 MMOL/L Blood Urea Nitrogen 13 7-18 MG/DL Creatinine 0.96 0.60-1.30 MG/DL Estimat Glomerular Filtration Rate 71 BUN/Creatinine Ratio 14 Glucose Level 102 70-105 MG/DL Calcium Level 9.0 8.5-10.1 MG/DL Physical Exam-([facility]) Physical Exam Vital Signs VS - Last 72 Hours, by Label 09/14/22 09/14/22 09/14/22 09/14/22 03:43 04:24 10:37 11:20 Temp 36.4 36.6 Pulse 84 69 Resp 22 20 B/P (MAP) 121/91 (101) 157/86 Pulse Ox 93 95 96 O2 Delivery Room Air Room Air Nasal Cannula Nasal Cannula O2 Flow Rate 0 2.00 2.00 FiO2 21 88 09/14/22 09/14/22 09/14/22 09/14/22 12:45 13:17 13:52 14:47 Temp 36.6 Pulse 63 60 60 Pulse Ox 96 96 O2 Delivery Nasal Cannula O2 Flow Rate 2.00 FiO2 88 09/14/22 09/14/22 09/14/22 09/14/22 15:09 15:43 19:00 19:20 Temp 36.8 37.0 Pulse 79 80 78 Resp 20 22 B/P (MAP) 148/98 (115) 141/72 (95) Pulse Ox 93 94 92 O2 Delivery Nasal Cannula Nasal Cannula Nasal Cannula O2 Flow Rate 2.00 2.00 2.00 09/14/22 09/14/22 09/14/22 09/15/22 20:00 21:38 23:04 01:00 Temp 37.0 Pulse 75 83 Resp 20 B/P (MAP) 141/70 (93) Pulse Ox 93 93 O2 Delivery Nasal Cannula Nasal Cannula Nasal Cannula O2 Flow Rate 2.00 2.00 2.00 2.00 09/15/22 09/15/22 09/15/22 09/15/22 02:41 03:13 06:59 07:18 Temp 37.0 36.2 Pulse 82 82 Resp 18 20 B/P (MAP) 162/79 (106) 159/74 (102) Pulse Ox 94 94 96 95 O2 Delivery Nasal Cannula Nasal Cannula Nasal Cannula Nasal Cannula O2 Flow Rate 2.00 2.00 2.00 2.00 2.00 2.00 09/15/22 07:35 Pulse 84 Capillary Refill : Less Than 3 Seconds General Appearance: WD/WN, no apparent distress HEENT: PERRL/EOMI Neck: non-tender, full range of motion Respiratory: normal breath sounds, no respiratory distress, no accessory muscle use, wheezing Cardiovascular: normal peripheral pulses, regular rate, rhythm, no murmur Gastrointestinal: normal bowel sounds, non tender, soft; No guarding, No rebound, No tenderness Back: no CVA tenderness, no vertebral tenderness Extremities: normal range of motion, no calf tenderness, normal capillary refill, pedal edema (1+ pitting edema bilaterally) Neurologic/Psychiatric: move coordinator II-XII nml as tested, alert Skin: normal color, warm/dry Lymphatic: no adenopathy Assessment/Plan Assessment/Plan Admission Status: Observation (1) Multifocal pneumonia Status: Acute Assessment & Plan: - Continue Zosyn, MAT protocol, Encouraged IS, PT to get p atient OOB (2) AMS (altered mental status) Status: Acute Assessment & Plan: - Patient seems to be close to baseline Qualifiers: Qualified Codes: R41.82 - Altered mental status, unspecified (3) Acute and chronic respiratory failure with hypoxia Status: Acute Assessment & Plan: - No home O2 requirement, will titrate as tolerated (4) COPD exacerbation Status: Acute (5) Acute kidney failure Status: Acute Assessment & Plan: - Likely 2/2 dehydration, trending down with IVFs, IVFs down to 75 ml/hr, encourage PO hydration Qualifiers: Qualified Codes: N17.9 - Acute kidney failure, unspecified (6) Normocytic anemia Status: Acute Assessment & Plan: - No signs of acute bleeding, HDS, will continue to monitor (7) HTN (hypertension) Status: Chronic Assessment & Plan: - Restart home meds Qualifiers: Qualified Codes: I10 - Essential (primary) hypertension (8) HLD (hyperlipidemia) Status: Chronic Assessment & Plan: - Restart home meds (9) DVT prophylaxis Status: Acute Assessment & Plan: - ANDRIA Ryan MD Sep 15, 2022 11:14
[2022-09-15 11:20] VITALS: BP 157/72
[2022-09-15] MEDS: ENOXAPARIN 40 MG/0.4 ML (LOVENOX) SYR SQ SCH ×2 (11:37→23:41)
[2022-09-15] MEDS ORDERED: LOSARTAN 50 MG (COZAAR) TAB PO NR (11:45)
[2022-09-15] MEDS ORDERED: ATENOLOL 25 MG (TENORMIN) TAB PO NR (11:45)
[2022-09-15] MEDS ORDERED: PARoxetine 10 MG (PAXIL) TAB PO NR (11:45)
[2022-09-15 15:23] VITALS: BP 169/70
[2022-09-15] MEDS ORDERED: KCL 20 MEQ TAB (K-DUR) PO NR (16:00)
[2022-09-15 19:20] VITALS: BP 180/77
[2022-09-15] MEDS: ATENOLOL 25 MG (TENORMIN) TAB PO SCH (20:40)
[2022-09-15] MEDS: LACTULOSE SYRUP 10GM/15ML (ENULOSE) 30ML UDC PO SCH (20:40)
[2022-09-15] MEDS: BACLOFEN 10 MG (LIORESAL) TAB PO SCH (20:40)
[2022-09-15] MEDS: ZOLPIDEM 5 MG (AMBIEN) TAB PO SCH (20:40)
[2022-09-15] MEDS: GABAPENTIN 400 MG (NEURONTIN) CAP PO SCH (20:43)
[2022-09-15 23:18] VITALS: BP 157/70
[2022-09-16] MEDS: PIPERACILLIN SODIUM/TAZOBACTAM 4.5 GM in NS (IVPB) 100 ML IV SCH ×4 (01:17→23:41)
[2022-09-16] MEDS: NS IV 1000 ML 1,000 ML IV SCH (01:18)
[2022-09-16] MEDS: oxyCODONE/APAP 5/325MG (PERCOCET 5) TABLET PO PRN ×4 (02:52→23:40)
[2022-09-16] MEDS: RT-ALBUTEROL/IPRATROPIUM 3 ML (DUONEB) VIAL INH SCH ×4 (02:59→19:40)
[2022-09-16 03:32] VITALS: BP 164/76
--- NOTE | 2022-09-16 05:31 | Progress Note - Hospitalist ---
Subjective HPI/CC On Admission Date Seen by Provider: Sep 16, 2022 Time Seen by Provider: 11:00 Focused Exam Lactate Level 09/14/22 10:14: Lactic Acid Level 0.96 Objective Exam Vital Signs Vital Signs Date Time Temp Pulse Resp B/P (MAP) Pulse Ox O2 Delivery O2 Flow Rate FiO2 09/16/22 10:15 93 Room Air 0.00 09/16/22 07:28 36.3 66 20 166/73 (104) 09/14/22 13:52 88 Capillary Refill : Less Than 3 Seconds Results/Procedures Lab Laboratory Tests 09/16/22 05:05 Patient resulted labs reviewed. KARSON CALDERON DO Sep 16, 2022 05:31
[2022-09-16 05:37] LABS: BASOPHILS # (AUTO) 0.1 10^3/uL (0.0-0.1); BASOPHILS % (AUTO) 1 % (0-10); EOSINOPHILS # (AUTO) 0.2 10^3/uL (0.0-0.3); EOSINOPHILS % (AUTO) 2 % (0-10); HEMATOCRIT 31 % (35-52); HEMOGLOBIN 9.9 g/dL (11.5-16.0); LYMPHOCYTES # (AUTO) 1.8 10^3/uL (1.0-4.0); LYMPHOCYTES % (AUTO) 17 % (12-44); MEAN CORPUSCULAR HEMOGLOBIN 28 pg (25-34); MEAN CORPUSCULAR HGB CONC 32 g/dL (32-36); MEAN CORPUSCULAR VOLUME 88 fL (80-99); MEAN PLATELET VOLUME 9.4 fL (9.0-12.2); MONOCYTES # (AUTO) 0.8 10^3/uL (0.0-1.0); MONOCYTES % (AUTO) 8 % (0-12); NEUTROPHILS # (AUTO) 7.9 10^3/uL (1.8-7.8); NEUTROPHILS % (AUTO) 73 % (42-75); PLATELET COUNT 248 10^3/uL (130-400); WHITE BLOOD COUNT 10.9 10^3/uL (4.3-11.0)
[2022-09-16 05:53] LABS: CALCIUM 8.7 MG/DL (8.5-10.1); CREATININE SERUM 0.89 MG/DL (0.60-1.30); POTASSIUM 3.7 MMOL/L (3.6-5.0)
[2022-09-16] MEDS: predniSONE 20 MG TAB PO SCH (06:10)
[2022-09-16 07:28] VITALS: BP 166/73
[2022-09-16] MEDS: ATENOLOL 25 MG (TENORMIN) TAB PO SCH ×2 (08:23→20:09)
[2022-09-16] MEDS: PARoxetine 20 MG (PAXIL) TAB PO SCH (08:24)
[2022-09-16] MEDS: LOSARTAN 50 MG (COZAAR) TAB PO SCH (08:24)
[2022-09-16] MEDS: LACTULOSE SYRUP 10GM/15ML (ENULOSE) 30ML UDC PO SCH (08:25)
[2022-09-16] MEDS ORDERED: PARoxetine 10 MG (PAXIL) TAB PO SCH (09:00)
--- NOTE | 2022-09-16 10:26 | Progress Note ---
Subjective Subjective/Events-last exam Patient states that she is feeling better this AM. She is having some increase in anxiety. She would like to advance her diet. Tolerating PO diet and ambulation Review of Systems General: Fatigue Pulmonary: Dyspnea, Cough Cardiovascular: No: Chest Pain, Palpitations, Edema Gastrointestinal: Constipation; No: Nausea, Vomiting, Abdominal Pain, Diarrhea Neurological: Weakness Focused Exam Lactate Level 09/14/22 10:14: Lactic Acid Level 0.96 Objective Exam Last Set of Vital Signs Vital Signs Date Time Temp Pulse Resp B/P (MAP) Pulse Ox O2 Delivery O2 Flow Rate FiO2 09/16/22 08:30 Nasal Cannula 2.00 09/16/22 07:28 36.3 66 20 166/73 (104) 97 09/14/22 13:52 88 Capillary Refill : Less Than 3 Seconds I&O Intake and Output 09/16/22 00:00 Intake Total 2174 ml Balance 2174 ml Intake Oral 2174 ml # Voids 7 General: Alert, Oriented X3, No Acute Distress Lungs: Other (Diffuse wheezing, normal work of breathing, no crackles) Heart: Regular Rate, No Murmurs Abdomen: Normal Bowel Sounds, Soft, No Tenderness, No Masses Extremities: No Edema, No Tenderness/Swelling Neuro: Normal Speech Results/Procedures Lab Laboratory Tests 09/16/22 05:05: White Blood Count 10.9, Red Blood Count 3.56L, Hemoglobin 9.9L, Hematocrit 31L, Mean Corpuscular Volume 88, Mean Corpuscular Hemoglobin 28, Mean Corpuscular Hemoglobin Concent 32, Red Cell Distribution Width 16.8H, Platelet Count 248, Mean Platelet Volume 9.4, Immature Granulocyte % (Auto) 0, Neutrophils (%) (Auto) 73, Lymphocytes (%) (Auto) 17, Monocytes (%) (Auto) 8, Eosinophils (%) (Auto) 2, Basophils (%) (Auto) 1, Neutrophils # (Auto) 7.9H, Lymphocytes # (Auto) 1.8, Monocytes # (Auto) 0.8, Eosinophils # (Auto) 0.2, Basophils # (Auto) 0.1, Immature Granulocyte # (Auto) 0.0, Sodium Level 136, Potassium Level 3.7, Chloride Level 108H, Carbon Dioxide Level 19L, Anion Gap 9, Blood Urea Nitrogen 6L, Creatinine 0.89, Estimat Glomerular Filtration Rate 77, BUN/Creatinine Ratio 7, Glucose Level 99, Calcium Level 8.7 Microbiology 09/14/22 Blood Culture - Preliminary, Resulted No growth Assessment/Plan Assessment/Plan (1) Multifocal pneumonia Status: Acute Assessment & Plan: - Continue Zosyn, MAT protocol, Encouraged IS, PT to get patient OOB 09/16: Continue IV antibiotics, MAT protocol, titrate oxygen as tolerated (2) AMS (altered mental status) Status: Resolved Assessment & Plan: - Patient seems to be close to baseline Qualifiers: Qualified Codes: R41.82 - Altered mental status, unspecified (3) Acute and chronic respiratory failure with hypoxia Status: Acute Assessment & Plan: - No home O2 requirement, will titrate as tolerated 09/16: Turn off oxygen this AM (4) COPD exacerbation Status: Acute (5) Acute kidney failure Status: Resolved Assessment & Plan: - Likely 2/2 dehydration, trending down with IVFs, IVFs down to 75 ml/hr, encourage PO hydration Qualifiers: Qualified Codes: N17.9 - Acute kidney failure, unspecified (6) Normocytic anemia Status: Acute Assessment & Plan: - No signs of acute bleeding, HDS, will continue to monitor (7) HTN (hypertension) Status: Chronic Assessment & Plan: - Restart home meds Qualifiers: Qualified Codes: I10 - Essential (primary) hypertension (8) HLD (hyperlipidemia) Status: Chronic Assessment & Plan: - Restart home meds (9) DVT prophylaxis Status: Acute Assessment & Plan: - ANDRIA Ryan MD Sep 16, 2022 10:26
[2022-09-16] MEDS: busPIRone 10 MG (BUSPAR) TAB PO PRN ×2 (11:03→23:40)
[2022-09-16] MEDS: ENOXAPARIN 40 MG/0.4 ML (LOVENOX) SYR SQ SCH ×2 (11:03→20:09)
[2022-09-16] MEDS: DOCUSATE SODIUM 100 MG (COLACE) CAP PO SCH ×2 (11:04→20:07)
[2022-09-16 11:06] VITALS: BP 162/80
[2022-09-16 15:43] VITALS: BP 154/75
[2022-09-16 19:29] VITALS: BP 154/88
[2022-09-16] MEDS: ZOLPIDEM 5 MG (AMBIEN) TAB PO SCH (20:06)
[2022-09-16] MEDS: BACLOFEN 10 MG (LIORESAL) TAB PO SCH (20:07)
[2022-09-16] MEDS: GABAPENTIN 400 MG (NEURONTIN) CAP PO SCH (21:00)
[2022-09-17] MEDS: guaiFENesin/DM (ROBITUSSIN DM) 10 ML UDC PO PRN ×2 (00:51→05:03)
[2022-09-17] MEDS: RT-ALBUTEROL/IPRATROPIUM 3 ML (DUONEB) VIAL INH SCH ×2 (02:40→10:30)
[2022-09-17 04:00] VITALS: BP 169/78
[2022-09-17] MEDS: oxyCODONE/APAP 5/325MG (PERCOCET 5) TABLET PO PRN ×2 (05:03→10:27)
[2022-09-17 05:45] LABS: BASOPHILS % (AUTO) 0 % (0-10); EOSINOPHILS # (AUTO) 0.1 10^3/uL (0.0-0.3); EOSINOPHILS % (AUTO) 1 % (0-10); HEMATOCRIT 32 % (35-52); LYMPHOCYTES # (AUTO) 2.1 10^3/uL (1.0-4.0); LYMPHOCYTES % (AUTO) 17 % (12-44); MEAN CORPUSCULAR HEMOGLOBIN 27 pg (25-34); MEAN CORPUSCULAR HGB CONC 32 g/dL (32-36); MEAN CORPUSCULAR VOLUME 86 fL (80-99); MEAN PLATELET VOLUME 9.8 fL (9.0-12.2); MONOCYTES # (AUTO) 0.9 10^3/uL (0.0-1.0); MONOCYTES % (AUTO) 7 % (0-12); NEUTROPHILS # (AUTO) 9.2 10^3/uL (1.8-7.8); NEUTROPHILS % (AUTO) 74 % (42-75); PLATELET COUNT 296 10^3/uL (130-400); WHITE BLOOD COUNT 12.3 10^3/uL (4.3-11.0)
[2022-09-17 06:08] LABS: ALBUMIN 3.6 GM/DL (3.2-4.5); BILIRUBIN,TOTAL 0.7 MG/DL (0.1-1.0); CALCIUM 9.8 MG/DL (8.5-10.1); CREATININE SERUM 0.99 MG/DL (0.60-1.30); POTASSIUM 3.2 MMOL/L (3.6-5.0); TOTAL PROTEIN 6.6 GM/DL (6.4-8.2)
[2022-09-17] MEDS: predniSONE 20 MG TAB PO SCH (06:18)
--- NOTE | 2022-09-17 07:09 | Progress Note - Hospitalist ---
Subjective HPI/CC On Admission Date Seen by Provider: Sep 17, 2022 Time Seen by Provider: 11:00 Focused Exam Lactate Level Objective Exam Vital Signs Vital Signs Date Time Temp Pulse Resp B/P (MAP) Pulse Ox O2 Delivery O2 Flow Rate FiO2 09/17/22 11:59 36.2 66 18 164/71 (102) 94 Room Air 09/16/22 20:00 0.00 88 Capillary Refill : Less Than 3 Seconds Results/Procedures Lab Laboratory Tests 09/17/22 05:22 Patient resulted labs reviewed. KARSON CALDERON DO Sep 17, 2022 07:09
[2022-09-17] MEDS ORDERED: KCL 10 MEQ TAB (MICRO K) PO SCH (07:15)
[2022-09-17 07:45] VITALS: BP 158/91
[2022-09-17] MEDS: PIPERACILLIN SODIUM/TAZOBACTAM 4.5 GM in NS (IVPB) 100 ML IV SCH (09:36)
[2022-09-17] MEDS: ATENOLOL 25 MG (TENORMIN) TAB PO SCH (09:42)
[2022-09-17] MEDS: DOCUSATE SODIUM 100 MG (COLACE) CAP PO SCH (09:42)
[2022-09-17] MEDS: LOSARTAN 50 MG (COZAAR) TAB PO SCH (09:42)
[2022-09-17] MEDS: PARoxetine 20 MG (PAXIL) TAB PO SCH (09:42)
[2022-09-17] MEDS: GABAPENTIN 400 MG (NEURONTIN) CAP PO SCH (09:42)
[2022-09-17 11:59] VITALS: BP 164/71
[2022-09-17] MEDS ORDERED: KCL 20 MEQ TAB (K-DUR) PO ONE (12:15)
[2022-09-17] MEDS ORDERED: PRD20T PO (12:16)
[2022-09-17] MEDS ORDERED: GFCD10B PO (12:16)
[2022-09-17] MEDS ORDERED: AMOX1TAB12 PO (12:16)
--- NOTE | 2022-09-17 12:17 | Discharge Summary ---
Discharge Summary Hospital Course Was the Problem List Reviewed?: Yes Problems/Dx: (1) Pneumonia Status: Acute Qualifiers: Qualified Codes: J18.9 - Pneumonia, unspecified organism (2) Altered mental status Status: Acute Qualifiers: Qualified Codes: R41.82 - Altered mental status, unspecified (3) Acute kidney failure Status: Resolved Qualifiers: Qualified Codes: N17.9 - Acute kidney failure, unspecified (4) Acute and chronic respiratory failure with hypoxia Status: Acute (5) COPD exacerbation Status: Acute Hospital Course Date of Admission: Sep 14, 2022 at 11:22 Admission Diagnosis : Family Physician/Provider: [facility] Date of Discharge: 09/17/22 Discharge Diagnosis: [ ] Hospital Course: Patient had a lengthy hospital course after she was admitted for acute on chronic respiratory failure with pneumonia and exacerbation of COPD. IV antibiotics were initiated along with IV steroids and that was transitioned to oral steroids. Overall she did very well her lungs were much improved at d ischarge and she was discharged in improved condition. Labs and Pending Lab Test: Laboratory Tests 09/17/22 05:22: White Blood Count 12.3H, Red Blood Count 3.68L, Hemoglobin 10.0L, Hematocrit 32L , Mean Corpuscular Volume 86, Mean Corpuscular Hemoglobin 27, Mean Corpuscular Hemoglobin Concent 32, Red Cell Distribution Width 16.3H, Platelet Count 296, Mean Platelet Volume 9.8, Immature Granulocyte % (Auto) 1, Neutrophils (%) (Auto) 74, Lymphocytes (%) (Auto) 17, Monocytes (%) (Auto) 7, Eosinophils (%) (Auto) 1, Basophils (%) (Auto) 0, Neutrophils # (Auto) 9.2H, Lymphocytes # (Auto) 2.1, Monocytes # (Auto) 0.9, Eosinophils # (Auto) 0.1, Basophils # (Auto) 0.0, Immature Granulocyte # (Auto) 0.1, Sodium Level 140, Potassium Level 3.2L, Chloride Level 109H, Carbon Dioxide Level 22, Anion Gap 9, Blood Urea Nitrogen 10, Creatinine 0.99, Estimat Glomerular Filtration Rate 68, BUN/Creatinine Ratio 10, Glucose Level 123H, Calcium Level 9.8, Corrected Calcium 10.1, Total Bilirubin 0.7, Aspartate Amino Transf (AST/SGOT) 11, Alanine Aminotransferase (ALT/SGPT) 11, Alkaline Phosphatase 82, Total Protein 6.6, Albumin 3.6 Microbiology 09/14/22 Blood Culture - Preliminary, Resulted No growth Home Meds Active Prednisone 20 Mg Tab 20 Mg PO DAILY Take 3 tabs(60mg)daily, decrease by 1/2 tab(10mg)daily. Amox Tr-K Clv 875-125 mg Tab (Amoxicillin/Potassium Clav) 875 Mg-125 Mg Tablet 1 Each PO BID Reported Baclofen 20 Mg Tablet 20 Mg PO HS Pravastatin Sodium 80 Mg Tablet 80 Mg PO HS Losartan Potassium 50 Mg Tablet 50 Mg PO DAILY Paroxetine HCl 40 Mg Tablet 40 Mg PO DAILY TAKES 10MG +40MG TO EQUAL 50MG Paroxetine HCl 10 Mg Tablet 10 Mg PO DAILY TAKES 10MG +40MG TO EQUAL 50MG Eszopiclone 3 Mg Tablet 3 Mg PO HS Gabapentin 800 Mg Tablet 800 Mg PO BID Atenolol 50 Mg Tablet 50 Mg PO BID Assessment/Pt Instructions PCP in 1 week Discharge Planning: <30 minutes discharge planning Discharge Physical Examination Vital Signs Vital Signs Date Time Temp Pulse Resp B/P (MAP) Pulse Ox O2 Delivery O2 Flow Rate FiO2 09/17/22 11:59 36.2 66 18 164/71 (102) 94 Room Air 09/16/22 20:00 0.00 88 General Appearance: No Apparent Distress, WD/WN Respiratory: Lungs Clear, Normal Breath Sounds Neurologic/Psychiatric: Alert, Oriented x3, No Motor/Sensory Deficits, Normal Mood/Affect Allergies: Coded Allergies: cefazolin (Verified Allergy, Mild, 08/04/20) tramadol (Verified Allergy, Unknown, 08/04/20) Discharge Summary Date of Admission Sep 14, 2022 at 11:22 Date of Discharge Discharge Date: Sep 17, 2022 KARSON CALDERON DO Sep 17, 2022 12:17
== END 2022-09-17 12:14 | disposition home or self-care (01) ==
LOC: EDUNIT# 03:42 → ER 03:45 → 4TH 11:22 → UNDOADMOB 11:22 → 4TH 11:30 → UNDODISOB 09-17 12:14
PROVIDERS: ADMIT Family Medicine; ATTEND Internal Medicine
DX: J18.9 Pneumonia, unspecified organism (principal); J96.21 Acute and chronic respiratory failure with hypoxia; J44.0 Chronic obstructive pulmonary disease with (acute) lower respiratory infection; J44.1 Chronic obstructive pulmonary disease with (acute) exacerbation; F17.210 Nicotine dependence, cigarettes, uncomplicated; F41.9 Anxiety disorder, unspecified; N17.9 Acute kidney failure, unspecified; D64.9 Anemia, unspecified; Z20.822 Contact with and (suspected) exposure to COVID-19; I10 Essential (primary) hypertension; E78.5 Hyperlipidemia, unspecified; Z79.899 Other long term (current) drug therapy; Z88.1 Allergy status to other antibiotic agents; Z88.5 Allergy status to narcotic agent
CPT/HCPCS: 36415; 36600; 51701; 70450; 71250; 80048; 80053; 80306; 81000; 82805; 83605; 85007; 85025; 85027; 87040; 87636; 94640; 94760; 96361; 96372; 96376; G0378

== ENCOUNTER 2022-09-21 09:18 | Emergency (ER) | payer MEDICAID ==
[~2022-09-21] VITALS: Ht 154.9 cm; Wt 103.0 kg
[~2022-09-21 09:18] MED LIST changes: +AMOX1TAB12 PO; +BACL20TA PO; +ESZO3TAB39 PO; +GABA800T10 PO; +GFCD10B PO; +LOSA50TA63 PO; +PARO10TA3 PO; +PARO40TA3 PO; +PRAV80TA2 PO
--- NOTE | 2022-09-21 09:30 | ED Fall/Injury ---
General Stated Complaint: FALL | LT SIDE RIB PAIN | PNEUMONIA History of Present Illness Date Seen by Provider: Sep 21, 2022 Time Seen by Provider: 09:29 Initial Comments 51-year-old female presents with left side pain. Patient with seen about a week ago following a fall and had had a pneumonia. She did not being hospitalized and was discharged about 4 days ago. She reports she is got 2 days left on her antibiotics. She has some continued pain on the left side due to frequent coughing. She feels like there is some "popping" and just wants to have it evaluated. She reports she has had some Tylenol and ibuprofen with minimal relief and was needing some stronger for pain. Patient reports that she is feeling better and the pain is slowly getting better. Allergies and Home Medications Allergies Coded Allergies: cefazolin (Verified Allergy, Mild, 08/04/20) tramadol (Verified Allergy, Unknown, 08/04/20) Patient Home Medication List Home Medication List Reviewed: Yes Amoxicillin/Potassium Clav (Amox Tr-K Clv 875-125 mg Tab) 875 Mg-125 Mg Tablet, 1 EACH PO BID Prescribed by: KARSON CALDERON on 09/17/22 1216 Atenolol (Atenolol) 50 Mg Tablet, 50 MG PO BID, (Reported) Entered as Reported by: MANOLO PAGAN on 08/04/20 1717 Baclofen (Baclofen) 20 Mg Tablet, 20 MG PO HS, (Reported) Entered as Reported by: SHERLY HARRIS on 09/14/22 1601 Eszopiclone (Eszopiclone) 3 Mg Tablet, 3 MG PO HS, (Reported) Entered as Reported by: SHERLY HARRIS on 09/14/22 1601 Gabapentin (Gabapentin) 800 Mg Tablet, 800 MG PO BID, (Reported) Entered as Reported by: RG GARCIA on 09/14/22 0346 Guaifenesin/Codeine (Robitussin Ac (Codeine) Syrup) 10 Ml Syrp, 10 ML PO Q4H PRN for COUGH Prescribed by: KARSON CALDERON on 09/17/22 1217 Losartan Potassium (Losartan Potassium) 50 Mg Tablet, 50 MG PO DAILY, (Reported) Entered as Reported by: SHERLY HARRIS on 09/14/22 1601 Meloxicam, Submicronized (Meloxicam) 5 Mg Capsule, 5 MG PO DAILY Prescribed by: ARLEEN SANTILLAN on 09/21/22 1026 Paroxetine HCl (Paroxetine HCl) 10 Mg Tablet, 10 MG PO DAILY, (Reported) Entered as Reported by: SHERLY HARRIS on 09/14/22 1601 Paroxetine HCl (Paroxetine HCl) 40 Mg Tablet, 40 MG PO DAILY, (Reported) Entered as Reported by: SHERLY HARRIS on 09/14/22 160 Pravastatin Sodium (Pravastatin Sodium) 80 Mg Tablet, 80 MG PO HS, (Reported) Entered as Reported by: SHERLY HARRIS on 09/14/22 160 Prednisone (Prednisone) 20 Mg Tab, 20 MG PO DAILY Prescribed by: KARSON CALDERON on 09/17/22 1216 Discontinued Medications Albuterol Sulfate (Ventolin Hfa) 90 Mcg Hfa.aer.ad, 18 GM INH Q6H PRN for SHORTNESS OF BREATH Discontinued Reason: No Longer Taking Prescribed by: ARLEEN SANTILLAN on 09/13/221926 Azithromycin (Azithromycin) 250 Mg Tablet, 250 MG PO UD Discontinued Reason: No Longer Taking Prescribed by: ARLEEN SANTILLAN on 09/13/221926 Budesonide/Formoterol Fumarate (Symbicort 160-4.5 Mcg Inhaler) 10.2 Gm Hfa.aer.ad, (Reported) Discontinued Reason: No Longer Taking Entered as Reported by: MANOLO PAGAN on 08/04/201716 Hydrocodone/Acetaminophen (Hydrocodone-Acetamin 7.5-325) 1 Each Tablet, (Reported) Discontinued Reason: No Longer Taking Entered as Reported by: MANOLO PAGAN on 08/04/201716 Meloxicam (Meloxicam) 15 Mg Tablet, (Reported) Discontinued Reason: No Longer Taking Entered as Reported by: MANOLO PAGAN on 08/04/201716 Prednisone (Prednisone) 20 Mg Tab, 40 MG PO DAILY Discontinued Reason: No Longer Taking Prescribed by: AMADOU CHOWDARY on 08/04/201709 Zolpidem Tartrate (Ambien) 10 Mg Tablet, 10 MG PO, (Reported) Discontinued Reason: No Longer Taking Entered as Reported by: MANOLO PAGAN on 08/04/201717 Review of Systems Review of Systems Constitutional: No chills, No fever Respiratory: see HPI, cough Cardiovascular: see HPI Gastrointestinal: no symptoms reported Genitourinary: no symptoms reported Musculoskeletal: no symptoms reported Skin: no symptoms reported Psychiatric/Neurological: No Symptoms Reported Past Hvtvrvj-Baqsls-Jbtkns Hx Immunizations Up To Date First/Initial COVID19 Vaccinat: X2 Second COVID19 Vaccination Chi: X2 Third COVID19 Vaccination Date: X2 Seasonal Allergies Seasonal Allergies: No Past Medical History Surgery/Hospitalization HX: HTN, HIGH CHOLESTEROL, DEPRESSION, ANXIETY, INSOMNIA APPY, FOOT SURGERY 2002, C SECTION X2 Appendectomy, Section, Orthopedic Respiratory: No Cardiac: Yes High Cholesterol, Hypertension Neurological: No Genitourinary: No Gastrointestinal: No Musculoskeletal: No Endocrine: No HEENT: No Cancer: No Psychosocial: Yes Depression Integumentary: No Family Medical History No Pertinent Family Hx Physical Exam Vital Signs Vital Signs - First Documented 09/21/22 09:25 Temp 37.1 Pulse 63 Resp 20 B/P (MAP) 150/80 (103) Pulse Ox 96 O2 Delivery Room Air Capillary Refill : Height, Weight, BMI Height: '" Weight: lbs. oz. kg; 42.87 BMI Method: General Appearance: WD/WN, no apparent distress, obese Neck: full range of motion Cardiovascular: normal peripheral pulses Respiratory: lungs clear, normal breath sounds, no respiratory distress, other (ttp left chest wall ) Gastrointestinal: non tender, soft Neurologic/Psychiatric: alert, normal mood/affect, oriented x 3 Skin: normal color, warm/dry Progress/Results/Core Measures Results/Orders My Orders Orders - ARLEEN SANTILLAN DO Chest Pa/Lat (2 View) (09/21/22 09:34) Ketorolac Injection (Toradol Injection) (09/21/22 09:34) Lidocaine 2% Viscous 15 Ml (Xylocaine Vi (09/21/22 09:45) Antacid Suspension (Mylanta Suspension (09/21/22 09:45) Medications Given in ED Current Medications Medications Dose Ordered Sig/Jaime Route Start Time Stop Time Status Last Admin Dose Admin Al Hydrox/Mg Hydrox/Simethicone 30 ml ONCE ONCE PO 09/21/22 09:45 09/21/22 09:46 DC 09/21/22 09:46 30 ML Lidocaine HCl 15 ml ONCE ONCE PO 09/21/22 09:45 09/21/22 09:46 DC 09/21/22 09:45 15 ML Vital Signs/I&O 09/21/22 09:25 Temp 37.1 Pulse 63 Resp 20 B/P (MAP) 150/80 (103) Pulse Ox 96 O2 Delivery Room Air Progress Progress Note : Progress Note Patient's chest x-ray was ordered reviewed with initial interpretation negative by me with final interpretation per radiology report. There is no acute process at this time. Patient's symptoms are consistent with likely muscle strain from frequent cough. Patient to be treated with anti-inflammatory, topical lidocaine and topical Voltaren. I will prescribe her meloxicam. I discussed with her to avoid further anti-inflammatories such as ibuprofen. Patient is stable and discharged home. She should follow with her primary care provider as needed Diagnostic Imaging Diagonstic Imaging: Xray Plain Films/CT/US/NM/MRI: chest Comments Date of Exam:09/21/22 CHEST PA/LAT (2 VIEW) EXAMINATION: Chest 2 view HISTORY: Left-sided chest pain. Cough. COMPARISON: 09/13/2022. FINDINGS: The lung volumes are normal. No focal consolidation is seen. No large pleural effusion or pneumothorax is seen. The cardiomediastinal silhouette is normal in size and contour. No acute osseous abnormality is seen. IMPRESSION: 1. No acute pleuroparenchymal process. Departure Impression Primary Impression: Pleurodynia Disposition: 01 HOME, SELF-CARE Condition: Stable Departure-Patient Inst. Referrals: [facility] (PCP/Family) Primary Care Physician Patient Instructions: Pleuritic Chest Pain ED Add. Discharge Instructions: 4% topical lidocaine with menthol cream gel or patch, use as directed on package. Diclofenac/Voltaren cream or gel use as directed on package. Warm moist heat for 10 to 15 minutes at a time 3-4 times daily to affected area. F ollow-up with your primary care provider in 1 week for recheck of your symptoms Scripts Meloxicam, Submicronized (Meloxicam) 5 Mg Capsule 5 MG PO DAILY, #14 CAP Prov: ARLEEN SANTILLAN DO 09/21/22 ARLEEN SANTILLAN DO Sep 21, 2022 09:30
[2022-09-21] MEDS ORDERED: KETOROLAC 30 MG/ML VIAL IM STA (09:34)
[2022-09-21] MEDS ORDERED: LIDOCAINE 2% VISCOUS 15 ML UDC PO ONE (09:45)
[2022-09-21] MEDS ORDERED: ANTACID SUSP 30 ML UDC (MYLANTA) PO ONE (09:45)
--- NOTE | 2022-09-21 10:11 | Diagnostic Imaging Report ---
EXAMINATION: Chest 2 view HISTORY: Left-sided chest pain. Cough. COMPARISON: 09/13/2022. FINDINGS: The lung volumes are normal. No focal consolidation is seen. No large pleural effusion or pneumothorax is seen. The cardiomediastinal silhouette is normal in size and contour. No acute osseous abnormality is seen. IMPRESSION: 1. No acute pleuroparenchymal process. Dictated by: Dictated on workstation # [id number]
[2022-09-21] MEDS ORDERED: MELO5CAP3 PO (10:26)
[2022-09-21 10:30] VITALS: BP 142/84
== END 2022-09-21 10:30 | disposition home or self-care (01) ==
LOC: EDUNIT# 09:18 → ER 09:20
DX: R07.81 Pleurodynia (principal); E66.9 Obesity, unspecified; Z68.41 Body mass index [BMI] 40.0-44.9, adult
CPT/HCPCS: 71046

== ENCOUNTER 2022-09-30 22:39 | Emergency (ER) | payer MEDICAID ==
[~2022-09-30] VITALS: Ht 155 cm; Wt 99.3 kg
[~2022-09-30 22:39] MED LIST changes: +MELO5CAP3 PO
--- NOTE | 2022-10-01 00:06 | ED Lower Extremity ---
General Chief Complaint: Lower Extremity Stated Complaint: LEFT ANKLE/RIGHT SHOULDER INJURY POSS YEAST INFECT Nursing Triage Note: PT TO FT 1 VIA WC W C/O LEFT FOOT PAIN FROM FALL ON 09/13 OR 09/14. PT A&OX4, WAS EVALUATED IN THIS ED AFTER FALL. Source: patient Exam Limitations: no limitations History of Present Illness Date Seen by Provider: Sep 30, 2022 Time Seen by Provider: 23:55 Allergies and Home Medications Allergies Coded Allergies: cefazolin (Verified Allergy, Mild, 08/04/20) tramadol (Verified Allergy, Unknown, 08/04/20) Patient Home Medication List Amoxicillin/Potassium Clav (Amox Tr-K Clv 875-125 mg Tab) 875 Mg-125 Mg Tablet, 1 EACH PO BID Prescribed by: KARSON CALDERON on 09/17/22 1216 Atenolol (Atenolol) 50 Mg Tablet, 50 MG PO BID, (Reported) Entered as Reported by: MANOLO PAGAN on 08/04/20 1717 Baclofen (Baclofen) 20 Mg Tablet, 20 MG PO HS, (Reported) Entered as Reported by: SHERLY HARRIS on 09/14/22 1601 Eszopiclone (Eszopiclone) 3 Mg Tablet, 3 MG PO HS, (Reported) Entered as Reported by: SHERLY HARRIS on 09/14/22 1601 Gabapentin (Gabapentin) 800 Mg Tablet, 800 MG PO BID, (Reported) Entered as Reported by: RG GARCIA on 09/14/22 0346 Guaifenesin/Codeine (Robitussin Ac (Codeine) Syrup) 10 Ml Syrp, 10 ML PO Q4H PRN for COUGH Prescribed by: KARSON CALDERON on 09/17/22 1217 Losartan Potassium (Losartan Potassium) 50 Mg Tablet, 50 MG PO DAILY, (Reported) Entered as Reported by: SHERLY HARRIS on 09/14/22 1601 Meloxicam, Submicronized (Meloxicam) 5 Mg Capsule, 5 MG PO DAILY Prescribed by: ARLEEN SANTILLAN on 09/21/22 1026 Paroxetine HCl (Paroxetine HCl) 10 Mg Tablet, 10 MG PO DAILY, (Reported) Entered as Reported by: SHERLY HARRIS on 09/14/22 1601 Paroxetine HCl (Paroxetine HCl) 40 Mg Tablet, 40 MG PO DAILY, (Reported) Entered as Reported by: SHERLY HARRIS on 09/14/22 1601 Pravastatin Sodium (Pravastatin Sodium) 80 Mg Tablet, 80 MG PO HS, (Reported) Entered as Reported by: SHERLY HARRIS on 09/14/22 1601 Prednisone (Prednisone) 20 Mg Tab, 20 MG PO DAILY Prescribed by: KARSON CALDERON on 09/17/22 1216 Past Wjylqkt-Jbwtuj-Sozyqz Hx Patient Social History Tobacco Use?: Yes Tobacco type used: Cigarettes Smoking Status: Current Everyday Smoker Use of E-Cig and/or Vaping dev: No Substance use?: No Alcohol Use?: No Immunizations Up To Date First/Initial COVID19 Vaccinat: X2 Second COVID19 Vaccination Chi: X2 Third COVID19 Vaccination Date: X2 Seasonal Allergies Seasonal Allergies: No Past Medical History Surgery/Hospitalization HX: HTN, HIGH CHOLESTEROL, DEPRESSION, ANXIETY, INSOMNIA APPY, FOOT SURGERY 2001, C SECTION X2 Appendectomy, Section, Orthopedic Respiratory: No Cardiac: Yes High Cholesterol, Hypertension Neurological: No Genitourinary: No Gastrointestinal: No Musculoskeletal: No Endocrine: No HEENT: No Cancer: No Psychosocial: Yes Depression Integumentary: No Family Medical History No Pertinent Family Hx Physical Exam Vital Signs Vital Signs - First Documented 09/30/22 22:50 Temp 36.5 Pulse 72 Resp 20 B/P (MAP) 126/70 (88) Pulse Ox 98 O2 Delivery Room Air Capillary Refill : Less Than 3 Seconds Height, Weight, BMI Height: '" Weight: lbs. oz. kg; 41.00 BMI Method: Progress/Results/Core Measures Results/Orders My Orders Orders - GAMA MUNROE MD Ankle, Left, 3 Views (10/01/22 00:05) Vital Signs/I&O 09/30/22 22:50 Temp 36.5 Pulse 72 Resp 20 B/P (MAP) 126/70 (88) Pulse Ox 98 O2 Delivery Room Air Blood Pressure Mean: 88 Departure Impression Primary Impression: Closed fracture of left distal fibula Qualified Codes: S82.832A - Other fracture of upper and lower end of left fibula, initial encounter for closed fracture Disposition: 01 HOME, SELF-CARE Condition: Stable Departure-Patient Inst. Decision time for Depature: 01:01 Referrals: [facility] (PCP/Family) Primary Care Physician Patient Instructions: Fibula Fracture Add. Discharge Instructions: You have a healing fracture of your left fibula. It is important that you continue to wear the boot to protect this fracture as it heals. For pain take Tylenol (acetaminophen) up to 1000 mg every 6 hours as needed. Elevate and ice in 20-minute intervals to help reduce pain and swelling. Follow-up with your primary care provider soon as possible to monitor the healing of this fracture. Your x-rays need to be officially read by a radiologist. Until then, you are advised to place no weight on your left foot and to wear the boot continuously. Please call back to the emergency room at the above number after 9:00 AM to obtain the official radiologist interpretation and further instructions. Return to the emergency room if you have any other worsening of condition or need further evaluation. All discharge instructions reviewed with patient and/or family. Voiced understanding. Scripts Hydrocodone/Acetaminophen (Hydrocodone-Acetamin 5-325 mg) 5 Mg-325 Mg Tablet 1 TAB PO Q4H PRN for PAIN-MODERATE (5-7), #5 TAB Prov: GAMA MUNROE MD 10/01/22 GAMA MUNROE MD Oct 01, 2022 00:06
[2022-10-01 01:09] VITALS: BP 121/76
[2022-10-01] MEDS ORDERED: ACHD5005 PO (01:11)
--- NOTE | 2022-10-01 06:36 | Diagnostic Imaging Report ---
CLINICAL INDICATION: Patient with left ankle pain. EXAM: X-ray left ankle, 3 views. COMPARISON: None. FINDINGS AND IMPRESSION: 1: There is no acute fracture or dislocation. There is soft tissue swelling involving the left lower extremity of unknown etiology. 2: There is a subacute or chronic fracture involving the distal fibular diaphysis which is nondisplaced with slightly hypertrophic callus formation. There appears to be a subtle lucency in the fracture region still present. 3: There is no other acute fracture or dislocation. The ankle mortise and syndesmotic joints are unremarkable. 4: There is a hypertrophic calcaneal spur at the plantar attachment. Dictated by: Dictated on workstation # [id number]
== END 2022-10-01 01:09 | disposition home or self-care (01) ==
LOC: EDUNIT# 22:39 → ER 22:42
DX: S82.832A Other fracture of upper and lower end of left fibula, initial encounter for closed fracture (principal); F17.210 Nicotine dependence, cigarettes, uncomplicated; Z88.5 Allergy status to narcotic agent; W19.XXXA Unspecified fall, initial encounter
CPT/HCPCS: 73610

== ENCOUNTER 2022-10-01 18:12 | Observation (INO) | payer MEDICAID ==
[~2022-10-01] VITALS: Ht 154 cm; Wt 108.1 kg
[~2022-10-01 18:12] MED LIST changes: +ACHD5005 PO
[2022-10-01] MEDS ORDERED: RT-ALBUTEROL/IPRATROPIUM 3 ML (DUONEB) VIAL INH ONE (19:00)
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
[2022-10-01 19:08] LABS: BASOPHILS # (AUTO) 0.1 10^3/uL (0.0-0.1); BASOPHILS % (AUTO) 1 % (0-10); EOSINOPHILS # (AUTO) 0.2 10^3/uL (0.0-0.3); EOSINOPHILS % (AUTO) 2 % (0-10); HEMATOCRIT 33 % (35-52); HEMOGLOBIN 10.1 g/dL (11.5-16.0); LYMPHOCYTES # (AUTO) 2.6 10^3/uL (1.0-4.0); LYMPHOCYTES % (AUTO) 22 % (12-44); MEAN CORPUSCULAR HEMOGLOBIN 27 pg (25-34); MEAN CORPUSCULAR HGB CONC 31 g/dL (32-36); MEAN CORPUSCULAR VOLUME 89 fL (80-99); MEAN PLATELET VOLUME 9.2 fL (9.0-12.2); MONOCYTES % (AUTO) 9 % (0-12); NEUTROPHILS # (AUTO) 7.6 10^3/uL (1.8-7.8); NEUTROPHILS % (AUTO) 66 % (42-75); PLATELET COUNT 352 10^3/uL (130-400); WHITE BLOOD COUNT 11.5 10^3/uL (4.3-11.0)
[2022-10-01 19:10] LABS: BILIRUBIN,URINE NEGATIVE (NEGATIVE); CLARITY,URINE CLOUDY; COLOR,URINE YELLOW; GLUCOSE, URINE (UA) NEGATIVE (NEGATIVE); KETONES,URINE NEGATIVE (NEGATIVE); LEUKOCYTE ESTERASE ,URINE NEGATIVE (NEGATIVE); NITRITE,URINE NEGATIVE (NEGATIVE); PH,URINE 5.5 (5-9); PROTEIN,URINE TRACE (NEGATIVE)
[2022-10-01 19:13] LABS: ALBUMIN 3.8 GM/DL (3.2-4.5); CHLORIDE 112 MMOL/L (98-107); POTASSIUM 3.5 MMOL/L (3.6-5.0); PROTHROMBIN TIME PATIENT 13.1 SEC (12.2-14.7); SODIUM 142 MMOL/L (135-145)
[2022-10-01 19:14] LABS: AMMONIA 29 UMOL/L (11-32); CALCIUM 9.2 MG/DL (8.5-10.1)
[2022-10-01 19:15] LABS: GLUCOSE 120 MG/DL (70-105); TOTAL PROTEIN 6.5 GM/DL (6.4-8.2)
[2022-10-01 19:16] LABS: CARBON DIOXIDE 19 MMOL/L (21-32)
[2022-10-01 19:17] LABS: BILIRUBIN,TOTAL 0.3 MG/DL (0.1-1.0)
[2022-10-01 19:19] LABS: ALKALINE PHOSPHATASE 108 U/L (40-136); CREATININE SERUM 1.52 MG/DL (0.60-1.30); GFR ESTIMATED 41
[2022-10-01 19:20] LABS: BUN/CREATININE RATIO 10
[2022-10-01 19:22] LABS: ALANINE AMINOTRANSFERASE 16 U/L (0-55)
[2022-10-01 19:24] LABS: AMORPHOUS SEDIMENT,UR MOD AMOR URATES /LPF; BACTERIA,URINE NEGATIVE /HPF; CALCIUM OXALATE CRYSTALS,UR MODERATE /LPF; HYALINE CASTS, URINE >50 /LPF
[2022-10-01 19:25] LABS: AMPHETAMINE SCREEN, URINE NEGATIVE (NEGATIVE); BENZODIAZEPINES SCREEN URINE NEGATIVE (NEGATIVE); COCAINE SCREEN URINE NEGATIVE (NEGATIVE); OPIATE SCREEN URINE POSITIVE (NEGATIVE)
[2022-10-01 19:26] LABS: BARBITURATE SCREEN URINE NEGATIVE (NEGATIVE); CANNABINOID SCREEN, URINE NEGATIVE (NEGATIVE); METHADONE STAT NEGATIVE (NEGATIVE); OXYCODONE STAT NEGATIVE (NEGATIVE); PROPOXYPHENE STAT NEGATIVE (NEGATIVE); TRICYCLIC ANTIDEPRESSANTS SCRE NEGATIVE (NEGATIVE)
--- NOTE | 2022-10-01 19:31 | Diagnostic Imaging Report ---
PROCEDURE: CT head without contrast. TECHNIQUE: Multiple contiguous axial images were obtained through the brain without the use of intravenous contrast. Auto Exposure Controls were utilized during the CT exam to meet ALARA standards for radiation dose reduction. INDICATION: Altered mental status after fall. COMPARISON: 09/14/2022. FINDINGS: The ventricles and sulci are within normal limits. There is no hydrocephalus or cerebral edema. There is no midline shift or mass effect. There is no intracranial mass, hemorrhage or extra-axial fluid collection. The visualized paranasal sinuses and mastoid air cells are clear. There is no regional area of decreased attenuation appreciated to suggest an acute CVA. IMPRESSION: No acute intracranial abnormality. Dictated by: Dictated on workstation # [id number]
[2022-10-01] MEDS ORDERED: NALOXONE 2 MG/2 ML (NARCAN) SYR IV ONE (19:45)
[2022-10-01 20:41] LABS: ABG BASE EXCESS -3.4 MMOL/L (-2.5-2.5); ABG OXYGEN SATURATION 94 % (94-100); ABG PCO2 46 MMHG (35-45); ABG PO2 70 MMHG (79-93); ABG TCO2 23.5 MMOL/L (21.0-31.0); ALLENS TEST YES-POS; INSPIRED O2 RA; PATIENT TEMP 98.2; VENTILATOR NO
[2022-10-01 20:59] LABS: ACETAMINOPHEN < 10 UG/ML (10-30); SALICYLATE < 5.0 MG/DL (5.0-20.0)
[2022-10-01] MEDS ORDERED: ENOXAPARIN 40 MG/0.4 ML (LOVENOX) SYR SC SCH (22:15)
[2022-10-01] MEDS ORDERED: ONDANSETRON 4 MG (ZOFRAN) ORAL DISSOLVE TAB SL PRN (22:15)
[2022-10-01] MEDS ORDERED: ANTACID SUSP 30 ML UDC (MYLANTA) PO PRN ×2 (22:15)
[2022-10-01] MEDS ORDERED: BISACODYL 10 MG SUPP (DULCOLAX) PR PRN (22:15)
[2022-10-01] MEDS ORDERED: ONDANSETRON 4 MG/2 ML (SDV) Z0FRAN IV PRN ×2 (22:15)
[2022-10-01] MEDS ORDERED: LORazepam INJ 2 MG/ML (ATIVAN) VIAL IV PRN (22:15)
[2022-10-01] MEDS ORDERED: LACTULOSE SYRUP 10GM/15ML (ENULOSE) 30ML UDC PO PRN (22:15)
[2022-10-01] MEDS ORDERED: diphenhydrAMINE 50 MG/ML INJ (BENADRYL) IVP PRN (22:15)
[2022-10-01] MEDS ORDERED: LORazepam INJ 2 MG/ML (ATIVAN) VIAL IM/IV PRN (22:15)
[2022-10-01] MEDS ORDERED: polyethylene glycoL POWDER 17 GM (MIRALAX) PACK PO PRN (22:15)
[2022-10-01] MEDS ORDERED: HYDROmorphone 2 MG/ML VIAL (DILAUDID) IV PRN (22:15)
[2022-10-01] MEDS ORDERED: MELATONIN 3 MG TABLET PO PRN (22:15)
[2022-10-01] MEDS ORDERED: D5 1/2 NS 1000 ML IV SOLUTION 1,000 ML IV PRN (22:15)
[2022-10-01] MEDS ORDERED: ONDANSETRON 4 MG (ZOFRAN) ORAL DISSOLVE TAB PO PRN (22:15)
[2022-10-01] MEDS ORDERED: CALCIUM CARBONATE 500 MG (TUMS) TAB.CHEW PO PRN (22:15)
[2022-10-01] MEDS ORDERED: MILK OF MAGNESIA 400 MG/5 ML 30 ML UDC PO PRN (22:15)
[2022-10-01] MEDS ORDERED: LORazepam 1 MG (ATIVAN) TAB PO PRN (22:15)
[2022-10-01] MEDS ORDERED: NS IV 1000 ML 1,000 ML IV SCH ×2 (22:15→23:01)
[2022-10-01] MEDS ORDERED: SENNA W/DOCUSATE (SENOKOT S) TABLET PO PRN (22:15)
[2022-10-01] MEDS ORDERED: 1/2 NS IV SOLUTION 1,000 ML IV PRN (22:15)
[2022-10-01] MEDS ORDERED: ACETAMINOPHEN 325 MG TABLET PO PRN (22:15)
[2022-10-01] MEDS ORDERED: diphenhydrAMINE 25 MG TAB (BENADRYL) PO PRN (22:15)
[2022-10-01] MEDS ORDERED: NS IV 500 ML 500 ML IV PRN (22:15)
[2022-10-01 22:21] VITALS: BP 105/59
[2022-10-01] MEDS ORDERED: RT-ALBUTEROL SULF 2.5 MG/3 ML PRE-MIX VIAL INH PRN (22:30)
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
[2022-10-01 23:30] VITALS: BP 166/71
[2022-10-02] MEDS ORDERED: RT-ALBUTEROL/IPRATROPIUM 3 ML (DUONEB) VIAL INH SCH (02:00)
[2022-10-02 02:26] VITALS: BP 141/82
[2022-10-02 04:06] LABS: BASOPHILS # (AUTO) 0.1 10^3/uL (0.0-0.1); BASOPHILS % (AUTO) 1 % (0-10); EOSINOPHILS # (AUTO) 0.1 10^3/uL (0.0-0.3); EOSINOPHILS % (AUTO) 1 % (0-10); HEMATOCRIT 32 % (35-52); HEMOGLOBIN 9.6 g/dL (11.5-16.0); LYMPHOCYTES # (AUTO) 2.2 10^3/uL (1.0-4.0); LYMPHOCYTES % (AUTO) 23 % (12-44); MEAN CORPUSCULAR HEMOGLOBIN 27 pg (25-34); MEAN CORPUSCULAR HGB CONC 30 g/dL (32-36); MEAN CORPUSCULAR VOLUME 90 fL (80-99); MEAN PLATELET VOLUME 9.2 fL (9.0-12.2); MONOCYTES # (AUTO) 0.9 10^3/uL (0.0-1.0); MONOCYTES % (AUTO) 9 % (0-12); NEUTROPHILS # (AUTO) 6.4 10^3/uL (1.8-7.8); NEUTROPHILS % (AUTO) 66 % (42-75); PLATELET COUNT 306 10^3/uL (130-400); WHITE BLOOD COUNT 9.7 10^3/uL (4.3-11.0)
[2022-10-02 04:15] LABS: ALBUMIN 3.4 GM/DL (3.2-4.5); POTASSIUM 3.7 MMOL/L (3.6-5.0)
[2022-10-02 04:16] LABS: CALCIUM 8.8 MG/DL (8.5-10.1)
[2022-10-02 04:18] LABS: TOTAL PROTEIN 5.9 GM/DL (6.4-8.2)
[2022-10-02 04:19] LABS: BILIRUBIN,TOTAL 0.3 MG/DL (0.1-1.0)
[2022-10-02 04:21] LABS: CREATININE SERUM 1.06 MG/DL (0.60-1.30)
[2022-10-02 04:24] LABS: MAGNESIUM 2.1 MG/DL (1.6-2.4)
[2022-10-02] MEDS ORDERED: POTASSIUM CL 10MEQ/50ML IVPB 50 ML IV SCH (06:00)
[2022-10-02] MEDS ORDERED: KCL 20 MEQ TAB (K-DUR) PO SCH (06:00)
[2022-10-02] MEDS ORDERED: inSUlin ASPART (NovoLOG) 1 UNIT/0.01 ML (CHARGE PER UNIT) SC SCH (06:00)
[2022-10-02] MEDS ORDERED: MAGNESIUM 1 GM/100 ML IVPB 100 ML IV SCH (06:00)
[2022-10-02] MEDS ORDERED: THIAMINE 100 MG (VITAMIN B-1) TAB PO SCH (07:00)
[2022-10-02] MEDS ORDERED: MULTIVIT W/MINERALS TAB (THERAGRAN M) PO SCH (07:00)
--- NOTE | 2022-10-02 08:42 | Short Stay Summary-Hospitalist ---
History of Present Illness HPI/Chief Complaint Patient left AMA prior to my evaluation Source: RN/MD Date Seen 10/02/22 Time Seen by a Provider: 10:00 Attending Physician [facility] PCP Admitting Physician: Stephanie Pak DO Attending Physician: Stephanie Pak DO Referring Physician Date of Admission Oct 01, 2022 at 21:54 Home Medications & Allergies Home Medications Reviewed patient Home Medication Reconciliation performed by pharmacy medication reconciliations industrial ecology technician and/or nursing. Patients Allergies have been reviewed. Allergies Allergies Coded Allergies cefazolin (Verified Allergy, Mild, 08/04/20) tramadol (Verified Allergy, Unknown, 08/04/20) Past Pjhqfwf-Phuxvc-Uqsola Hx Patient Social History Tobacco Use?: Yes Tobacco type used: Cigarettes Smoking Status: Current Everyday Smoker Use of E-Cig and/or Vaping dev: No Substance use?: No Alcohol Use?: No Pt feels they are or have been: No Immunizations Up To Date First/Initial COVID19 Vaccinat: X2 Second COVID19 Vaccination Chi: X2 Tetanus Booster (TDap): Unknown Seasonal Allergies Seasonal Allergies: No Current Status status: No Advance Directives: No Communicates: Verbally Primary Language: Bahamian Preferred Spoken Language: Bahamian Is interpretation needed?: No Implanted or Applied Medical D: None Past Medical History Surgeries: Appendectomy, Section, Orthopedic High Cholesterol, Hypertension Depression COPD HTN HLD Depression Family Medical History No Pertinent Family Hx Review of Systems Constitutional: see HPI (Patient left AMA prior to my evaluation) Physical Exam Physical Exam Vital Signs Vital Signs - First Documented 10/01/22 10/01/22 10/01/22 18:17 19:16 23:59 Temp 36.8 Pulse 71 Resp 18 B/P (MAP) 105/59 (74) Pulse Ox 93 O2 Delivery Room Air O2 Flow Rate 2.00 FiO2 28 Capillary Refill : Less Than 3 Seconds Height, Weight, BMI Height: '" Weight: lbs. oz. kg; 45.58 BMI Method: General Appearance: Chronically ill, Obese, Other (Patient left AMA prior to my evaluation) Results Results/Procedures Labs Laboratory Tests 10/01/22 19:05 10/02/22 03:36 Patient resulted labs reviewed. Short Stay Diagnosis Discharge Diagnosis-Short Stay Admission Diagnosis Patient left AMA prior to my evaluation Final Discharge Diagnosis Patient left AMA prior to my evaluation Conclusion Plan Patient left AMA prior to my evaluation STEPHANIE PAK DO Oct 02, 2022 08:42
[2022-10-02] MEDS ORDERED: FOLIC ACID 1 MG TAB PO SCH (09:00)
[2022-10-02] MEDS ORDERED: MAGNESIUM OXIDE (MAG-OX)400 MG TAB PO SCH (09:00)
[2022-10-02] MEDS ORDERED: SENNOSIDES 8.6 MG (SENOKOT) TAB PO SCH (09:00)
[2022-10-02] MEDS ORDERED: KCL 20 MEQ TAB (K-DUR) PO ONE (09:00)
[2022-10-02] MEDS ORDERED: DOCUSATE SODIUM 100 MG (COLACE) CAP PO SCH (09:00)
== END 2022-10-02 05:25 | disposition left against medical advice (07) ==
LOC: EDUNIT# 18:12 → ER 18:16 → ICU 21:45 → UNDOADMOB 21:54 → UNDODISOB 10-02 05:25
PROVIDERS: ADMIT Internal Medicine; ATTEND Internal Medicine
DX: T42.8X1A Poisoning by antiparkinsonism drugs and other central muscle-tone depressants, accidental (unintentional), initial encounter (principal); R41.82 Altered mental status, unspecified; E66.9 Obesity, unspecified; N17.9 Acute kidney failure, unspecified; F17.210 Nicotine dependence, cigarettes, uncomplicated; Z68.42 Body mass index [BMI] 45.0-49.9, adult
CPT/HCPCS: 36415; 36600; 70450; 80053; 80306; 80320; 80329; 81000; 82140; 82805; 83735; 83930; 84100; 85025; 85610; 87081; 94640; 94660; 94760; 96372; G0378

== ENCOUNTER 2022-12-30 18:25 | Emergency (ER) | payer MEDICAID ==
[~2022-12-30] VITALS: Ht 155 cm; Wt 91.0 kg
--- NOTE | 2022-12-30 18:45 | ED Chest Pain ---
General Chief Complaint: Chest Pain Stated Complaint: CHEST PAINS, UPPER ABD Nursing Triage Note: PT STATES CHEST PAIN FOR 3 DAYS, COUGHING FOR ABOUT A WEEK, HX OF BRONCHITIS AND PNEUMONIA IN THE PAST Source: patient Exam Limitations: no limitations History of Present Illness Date Seen by Provider: Dec 30, 2022 Time Seen by Provider: 18:36 Initial Comments 52-year-old female presents to the ER with complaint of midsternal chest pain for 3 days, states the pain has been constant. Reports she has had a cough for the last week and a half. She states that the chest pain is worse with the cough. States that the pain is a stabbing pain with a cough, and a pressure- like pain when she is not coughing. She reports some shortness of air with the pain. She denies change in the pain with exertion, denies radiation of the pain, denies any sweating with the pain. Denies fever and nausea vomiting. Patient smokes cigarettes. Allergies and Home Medications Allergies Coded Allergies: cefazolin (Verified Allergy, Mild, 08/04/20) tramadol (Verified Allergy, Unknown, 08/04/20) Patient Home Medication List Home Medication List Reviewed: Yes Amoxicillin/Potassium Clav (Amox Tr-K Clv 875-125 mg Tab) 875 Mg-125 Mg Tablet, 1 EACH PO BID Prescribed by: KARSON CALDERON on 09/17/22 1216 Atenolol (Atenolol) 50 Mg Tablet, 50 MG PO BID, (Reported) Entered as Reported by: MANOLO PAGAN on 08/04/20 1717 Baclofen (Baclofen) 20 Mg Tablet, 20 MG PO HS, (Reported) Entered as Reported by: SHERLY HARRIS on 09/14/22 1601 Eszopiclone (Eszopiclone) 3 Mg Tablet, 3 MG PO HS, (Reported) Entered as Reported by: SHERLY HARRIS on 09/14/22 1601 Gabapentin (Gabapentin) 800 Mg Tablet, 800 MG PO BID, (Reported) Entered as Reported by: RG GARCIA on 09/14/22 0346 Guaifenesin/Codeine (Robitussin Ac (Codeine) Syrup) 10 Ml Syrp, 10 ML PO Q4H PRN for COUGH Prescribed by: KARSON CALDERON on 09/17/22 1217 Hydrocodone/Acetaminophen (Hydrocodone-Acetamin 5-325 mg) 5 Mg-325 Mg Tablet, 1 TAB PO Q4H PRN for PAIN-MODERATE (5-7) Prescribed by: GAMA CHAKRABORTY on 10/01/22 0112 Losartan Potassium (Losartan Potassium) 50 Mg Tablet, 50 MG PO DAILY, (Reported) Entered as Reported by: SHERLY HARRIS on 09/14/22 1601 Meloxicam, Submicronized (Meloxicam) 5 Mg Capsule, 5 MG PO DAILY Prescribed by: ARLEEN SANTILLAN on 09/21/22 1026 Paroxetine HCl (Paroxetine HCl) 10 Mg Tablet, 10 MG PO DAILY, (Reported) Entered as Reported by: SHERLY HARRIS on 09/14/22 1601 Paroxetine HCl (Paroxetine HCl) 40 Mg Tablet, 40 MG PO DAILY, (Reported) Entered as Reported by: SHERLY HARRIS on 09/14/22 1601 Pravastatin Sodium (Pravastatin Sodium) 80 Mg Tablet, 80 MG PO HS, (Reported) Entered as Reported by: SHERLY HARRIS on 09/14/22 1601 Prednisone (Prednisone) 20 Mg Tab, 20 MG PO DAILY Prescribed by: KARSON CALDERON on 09/17/22 1216 Review of Systems Review of Systems Constitutional: see HPI Past Ycekjsp-Cphadb-Yxobws Hx Patient Social History Tobacco Use?: Yes Tobacco type used: Cigarettes Smoking Status: Current Everyday Smoker Substance use?: No Alcohol Use?: No Immunizations Up To Date First/Initial COVID19 Vaccinat: X2 Second COVID19 Vaccination Chi: X2 Third COVID19 Vaccination Date: X2 Seasonal Allergies Seasonal Allergies: No Past Medical History Surgery/Hospitalization HX: HTN, DEPRESSION, FX LT FOOT/ANKLE, HARDWARE IN RT WRIST/HAND Appendectomy, Section, Orthopedic Respiratory: No Cardiac: Yes High Cholesterol, Hypertension Neurological: No Genitourinary: No Gastrointestinal: No Musculoskeletal: No Endocrine: No HEENT: No Cancer: No Psychosocial: Yes Depression Integumentary: No Family Medical History No Pertinent Family Hx Physical Exam Vital Signs Vital Signs - First Documented 12/30/22 18:29 Temp 36.9 Pulse 69 Resp 20 B/P (MAP) 138/84 (102) Pulse Ox 97 O2 Delivery Room Air Capillary Refill : Less Than 3 Seconds Height, Weight, BMI Height: '" Weight: lbs. oz. kg; 37.00 BMI Method: General Appearance: No Apparent Distress, WD/WN Neck: Normal Inspection, Supple Respiratory: Lungs Clear, Normal Breath Sounds, No Accessory Muscle Use, No Respiratory Distress, Other (Midsternal chest tender to palpation) Cardiovascular: Regular Rate, Rhythm Extremity: Normal Inspection, Normal Range of Motion Neurologic/Psychiatric: Alert, Normal Mood/Affect Skin: Normal Color, Warm/Dry Progress/Results/Core Measures Results/Orders Lab Results Laboratory Tests Test 12/30/22 18:45 12/30/22 18:55 Range/Units White Blood Count 9.8 4.3-11.0 10^3/uL Red Blood Count 4.02 3.80-5.11 10^6/uL Hemoglobin 10.9 L 11.5-16.0 g/dL Hematocrit 34 L 35-52 % Mean Corpuscular Volume 85 80-99 fL Mean Corpuscular Hemoglobin 27 25-34 pg Mean Corpuscular Hemoglobin Concent 32 32-36 g/dL Red Cell Distribution Width 16.9 H 10.0-14.5 % Platelet Count 301 130-400 10^3/uL Mean Platelet Volume 9.2 9.0-12.2 fL Immature Granulocyte % (Auto) 0 % Neutrophils (%) (Auto) 69 42-75 % Lymphocytes (%) (Auto) 22 12-44 % Monocytes (%) (Auto) 8 0-12 % Eosinophils (%) (Auto) 1 0-10 % Basophils (%) (Auto) 1 0-10 % Neutrophils # (Auto) 6.8 1.8-7.8 10^3/uL Lymphocytes # (Auto) 2.1 1.0-4.0 10^3/uL Monocytes # (Auto) 0.7 0.0-1.0 10^3/uL Eosinophils # (Auto) 0.1 0.0-0.3 10^3/uL Basophils # (Auto) 0.1 0.0-0.1 10^3/uL Immature Granulocyte # (Auto) 0.0 0.0-0.1 10^3/uL Prothrombin Time 13.0 12.2-14.7 SEC INR Comment 1.0 0.8-1.4 Activated Partial Thromboplast Time 28 24-35 SEC Sodium Level 143 135-145 MMOL/L Potassium Level 3.5 L 3.6-5.0 MMOL/L Chloride Level 111 H 98-107 MMOL/L Carbon Dioxide Level 21 21-32 MMOL/L Anion Gap 11 5-14 MMOL/L Blood Urea Nitrogen 15 7-18 MG/DL Creatinine 1.09 0.60-1.30 MG/DL Estimat Glomerular Filtration Rate 60 BUN/Creatinine Ratio 14 Glucose Level 147 H 70-105 MG/DL Calcium Level 9.7 8.5-10.1 MG/DL Corrected Calcium 9.9 8.5-10.1 MG/DL Magnesium Level 2.1 1.6-2.4 MG/DL Total Bilirubin 0.2 0.1-1.0 MG/DL Aspartate Amino Transf (AST/SGOT) 16 5-34 U/L Alanine Aminotransferase (ALT/SGPT) 15 0-55 U/L Alkaline Phosphatase 103 40-136 U/L Troponin I < 0.028 <0.028 NG/ML Total Protein 6.8 6.4-8.2 GM/DL Albumin 3.8 3.2-4.5 GM/DL Influenza Type A (RT-PCR) Not Detected Not Detecte Influenza Type B (RT-PCR) Not Detected Not Detecte SARS-CoV-2 RNA (RT-PCR) Detected H Not Detecte My Orders Orders - KIRILL LEON CAR HOPPER Cbc And Automated Diff (12/30/22 18:34) Magnesium (12/30/22 18:34) Chest 1 View, Ap/Pa Only (12/30/22 18:34) Comprehensive Metabolic Panel (12/30/22 18:34) Protime With Inr (12/30/22 18:34) Partial Thromboplastin Time (12/30/22 18:34) Monitor-Rhythm Ecg Trace Only (12/30/22 18:34) Ed Iv/Invasive Line Start (12/30/22 18:34) Troponin I [place] (12/30/22 18:34) Covid 19 Inhouse Test (12/30/22 18:42) Influenza A And B By Pcr (12/30/22 18:42) Vital Signs/I&O 12/30/22 12/30/22 12/30/22 18:29 18:36 19:43 Temp 36.9 36.7 Pulse 69 64 Resp 20 14 B/P (MAP) 138/84 (102) 145/75 Pulse Ox 97 98 O2 Delivery Room Air Room Air Room Air Blood Pressure Mean: 102 Progress Progress Note : Progress Note Patient seen and evaluated, resting comfortably in bed, no acute distress. Based on exam and symptoms, work-up initiated including CBC, CMP, coags, troponin, magnesium, chest x-ray, EKG. 1939 Labs and chest x-ray reviewed. CBC shows slightly decreased hemoglobin and hematocrit. CMP shows slightly decreased potassium 3.5, slightly elevated chloride 111, glucose slightly elevated 147, troponin negative. Magnesium normal. Coags normal. Patient was positive for COVID, negative for flu. Chest x-ray shows no acute cardiopulmonary abnormality. Results discussed with patient. Patient informed that her symptoms are likely related to her COVID. Patient instructed to take Tylenol for pain to use her albuterol inhaler as needed for cough and shortness of breath. Discharge instructions and return precautions provided. Initial ECG Impression Date: Dec 30, 2022 Initial ECG Impression Time: 18:38 Initial ECG Rate: 66 Initial ECG Rhythm: Normal Sinus Initial ECG Intervals: Normal Initial ECG Impression: Normal Initial ECG Comparisson: Unchanged Diagnostic Imaging Diagonstic Imaging: Xray Plain Films/CT/US/NM/MRI: chest Comments [facility], [place] NAME: MARY [facility]ATAYA [facility] REC#: [id number] PT STATUS: REG ER : 1970 PHYSICIAN: KIRILL LEON APRN ADMIT DATE: 12/30/22/ER Signed Date of Exam:12/30/22 CHEST 1 VIEW, AP/PA ONLY INDICATION: Chest pain FINDINGS: The lungs are clear. No failure, effusion or pneumothorax. IMPRESSION: Unremarkable frontal chest Dictated by: Dictated on workstation # [id number] Dict: 12/30/221857 Trans: 12/30/221907 ADÁN [id number] Interpreted by: VANESSA FLAHERTY Electronically signed by: VANESSA FLAHERTY 12/30/221907 Departure Impression Primary Impression: COVID Disposition: 01 HOME, SELF-CARE Condition: Stable Departure-Patient Inst. Decision time for Depature: 19:44 Referrals: [facility] (PCP/Family) Primary Care Physician Patient Instructions: COVID-19 ED Add. Discharge Instructions: Take Tylenol as needed for pain. Use your inhaler as needed for shortness of breath or cough. Follow-up with your primary care provider if symptoms are not improving. Return for any new, concerning, or worsening symptoms. All discharge instructions reviewed with patient and/or family. Voiced understanding. KIRILL LEON APRN Dec 30, 2022 18:45
[2022-12-30 18:59] LABS: BASOPHILS # (AUTO) 0.1 10^3/uL (0.0-0.1); BASOPHILS % (AUTO) 1 % (0-10); EOSINOPHILS # (AUTO) 0.1 10^3/uL (0.0-0.3); EOSINOPHILS % (AUTO) 1 % (0-10); HEMATOCRIT 34 % (35-52); HEMOGLOBIN 10.9 g/dL (11.5-16.0); LYMPHOCYTES # (AUTO) 2.1 10^3/uL (1.0-4.0); LYMPHOCYTES % (AUTO) 22 % (12-44); MEAN CORPUSCULAR HEMOGLOBIN 27 pg (25-34); MEAN CORPUSCULAR HGB CONC 32 g/dL (32-36); MEAN CORPUSCULAR VOLUME 85 fL (80-99); MEAN PLATELET VOLUME 9.2 fL (9.0-12.2); MONOCYTES # (AUTO) 0.7 10^3/uL (0.0-1.0); MONOCYTES % (AUTO) 8 % (0-12); NEUTROPHILS # (AUTO) 6.8 10^3/uL (1.8-7.8); NEUTROPHILS % (AUTO) 69 % (42-75); PLATELET COUNT 301 10^3/uL (130-400); WHITE BLOOD COUNT 9.8 10^3/uL (4.3-11.0)
--- NOTE | 2022-12-30 19:03 | Diagnostic Imaging Report ---
INDICATION: Chest pain FINDINGS: The lungs are clear. No failure, effusion or pneumothorax. IMPRESSION: Unremarkable frontal chest Dictated by: Dictated on workstation # [id number]
[2022-12-30 19:05] LABS: ALBUMIN 3.8 GM/DL (3.2-4.5)
[2022-12-30 19:06] LABS: CHLORIDE 111 MMOL/L (98-107); POTASSIUM 3.5 MMOL/L (3.6-5.0); SODIUM 143 MMOL/L (135-145)
[2022-12-30 19:07] LABS: CALCIUM 9.7 MG/DL (8.5-10.1)
[2022-12-30 19:08] LABS: GLUCOSE 147 MG/DL (70-105); TOTAL PROTEIN 6.8 GM/DL (6.4-8.2)
[2022-12-30 19:09] LABS: CARBON DIOXIDE 21 MMOL/L (21-32)
[2022-12-30 19:10] LABS: BILIRUBIN,TOTAL 0.2 MG/DL (0.1-1.0)
[2022-12-30 19:11] LABS: ALKALINE PHOSPHATASE 103 U/L (40-136)
[2022-12-30 19:12] LABS: CREATININE SERUM 1.09 MG/DL (0.60-1.30); GFR ESTIMATED 60
[2022-12-30 19:13] LABS: BUN/CREATININE RATIO 14
[2022-12-30 19:14] LABS: ALANINE AMINOTRANSFERASE 15 U/L (0-55); MAGNESIUM 2.1 MG/DL (1.6-2.4)
[2022-12-30 19:43] VITALS: BP 145/75
[2022-12-30] MEDS ORDERED: cloNIDine 0.1 MG TABLET PO ONE (19:45)
== END 2022-12-30 19:49 | disposition home or self-care (01) ==
LOC: EDUNIT# 18:25 → ER 18:28
DX: U07.1 COVID-19 (principal); R07.2 Precordial pain; R06.02 Shortness of breath; R05.9 Cough, unspecified; F17.210 Nicotine dependence, cigarettes, uncomplicated
CPT/HCPCS: 36415; 71045; 80053; 83735; 84484; 85025; 85610; 85730; 87636; 93005; 93041